=== PATIENT | female | born 1995 | race American Indian/Alaskan Native ===

== ENCOUNTER 2017-04-06 01:20 | Emergency (ER) | payer SELFPAY ==
[2017-04-06] MEDS ORDERED: Ketorolac 60 MG/2 ML SDV IM ONE (01:44)
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
[2017-04-06 03:01] VITALS: BP 103/57
--- NOTE | 2017-04-06 10:44 | CR ---
EXAM DATE: 04/06/17 PATIENT'S AGE: 21 Patient: MARINA RAMACHANDRAN Facility: [place], [place] Site . Site : 1995 Study: XRay Extremity Left [id number]/14/2017 2:18:48 AM Ordering Physician: Duke Garcia Final Report: INDICATION: hand pain, injury TECHNIQUE: Hand radiograph 2 views left COMPARISON: None FINDINGS: Bones: Alignment is normal. No acute fractures or aggressive bone lesions identified. Joint spaces: The carpal rows and visualized metacarpal and interphalangeal joints are normal in appearance. Soft tissues: Unremarkable. No radiopaque foreign bodies are seen. IMPRESSION: 1. No acute osseous injuries are noted. Dictated by: Herrera May MD @ 04/06/2017 02:21:39 (Electronic Signature) Report Signed by Proxy. [facility] CENTERBrooklynn
--- NOTE | 2017-04-06 10:45 | CR ---
EXAM DATE: 04/06/17 PATIENT'S AGE: 21 Patient: MARINA RAMACHANDRAN Facility: [place], [place] Site . Site : 1995 Study: XRay Pelvis [id number]/14/2017 2:20:03 AM Ordering Physician: Duke Garcia Final Report: INDICATION: fall, tailbone pain TECHNIQUE: Pelvis radiograph 1 view COMPARISON: None FINDINGS: Bones: Alignment is normal. No acute fractures or aggressive bone lesions identified. Joint spaces: The hip joints are unremarkable in appearance. The SI joints are unremarkable. No radiographic evidence of hip effusions are seen. The pubic symphysis is normal in appearance. Soft tissues: The visualized bowel gas pattern is normal. No abnormal calcifications are noted in the pelvis. IMPRESSION: 1. No acute osseous injuries are noted. Dedicated sacral radiographs are recommended. Dictated by: Herrera May MD @ 04/06/2017 02:22:23 (Electronic Signature) Report Signed by Proxy. [facility]
== END 2017-04-06 02:45 | disposition home or self-care (01) ==
LOC: MW.ED 01:20
DX: S63.602A Unspecified sprain of left thumb, initial encounter (principal); S30.0XXA Contusion of lower back and pelvis, initial encounter; S60.222A Contusion of left hand, initial encounter; Z87.440 Personal history of urinary (tract) infections; Y04.0XXA Assault by unarmed brawl or fight, initial encounter
CPT/HCPCS: 72170; 73120; 96372; 99283; J1885

== ENCOUNTER 2017-07-18 01:09 | Emergency (ER) | payer OTHER ==
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
[2017-07-18 02:07] LABS: CHLORIDE,CL 108 mmol/L (98-110); SODIUM,NA 136 mmol/L (136-146)
[2017-07-18 04:22] VITALS: BP 126/62
--- NOTE | 2017-07-18 19:10 | US ---
EXAM DATE: 07/18/17 PATIENT'S AGE: 21 Patient: MARINA RAMACHANDRAN Facility: [place], [place] Site . Site : 1995 Study: US OB Pelvis [id number]/[id number]/2017 3:25:10 AM Ordering Physician: Stephanie Berumen Final Report: INDICATION: Vaginal Bleeding TECHNIQUE: Ultrasound OB pelvis transvaginal. Real time cardenas scale imaging of the pelvis was performed. COMPARISON: None FINDINGS: Sonographic imaging demonstrates a single intrauterine gestation. The embryo demonstrates a regular cardiac rate measuring 139 beats per minute. The embryo` s crown rump length measurement of 10 mm corresponds to a gestational age of 7 weeks, 1 day. There is a normal appearing yolk sac. There are no gross abnormalities noted within the embryo at this early state of development. The placenta has not yet developed. The gestational sac has a normal appearance and there is no evidence of a perigestational hemorrhage. The amount of fluid within the sac appears appropriate for gestational age. The cervix is closed. The myometrium appears normal. The right ovary has a simple cyst measuring 2.2 cm in diameter. Arterial blood flow seen in both ovaries. No significant ascites noted. IMPRESSION: 1. Single viable intrauterine with an estimated gestational age of 7 weeks, 1 day. Dictated by Herrera May MD @ 07/18/2017 3:44:35 AM Dictated by: Herrera May MD @ 07/18/2017 03:47:58 (Electronic Signature) Report Signed by Proxy. [facility]
== END 2017-07-18 04:13 | disposition home or self-care (01) ==
LOC: MW.ED 01:09
DX: O20.0 Threatened abortion (principal); Z3A.01 Less than 8 weeks gestation of pregnancy; Z87.440 Personal history of urinary (tract) infections
CPT/HCPCS: 36415; 76817; 76817-26; 80053; 81001; 84702; 85025; 86900; 86901; 87086; 99283; 99284-25

== ENCOUNTER 2017-08-07 17:03 | Emergency (ER) | payer OTHER ==
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
[2017-08-07 17:28] VITALS: BP 120/74
== END 2017-08-07 18:20 | disposition home or self-care (01) ==
LOC: MW.ED 17:03
DX: O9A.211 Injury, poisoning and certain other consequences of external causes complicating pregnancy, first trimester (principal); S00.431A Contusion of right ear, initial encounter; Y04.2XXA Assault by strike against or bumped into by another person, initial encounter; Z3A.10 10 weeks gestation of pregnancy
CPT/HCPCS: 99282; 99284

== ENCOUNTER 2017-09-14 00:25 | Emergency (ER) | payer OTHER ==
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
[2017-09-14 02:28] VITALS: BP 121/68
--- NOTE | 2017-09-14 11:30 | US ---
EXAM DATE: 09/14/17 PATIENT'S AGE: 21 Patient: MARINA RAMACHANDRAN Facility: [place], [place] Site . Site : 1995 Study: US OB Pelvis [id number]/14/2017 1:48:18 AM Ordering Physician: Doctor Jimeenz Final Report: INDICATION: Vaginal spotting and cramping after a fall TECHNIQUE: Ultrasound OB pelvis transabdominal. Real-time cardenas-scale imaging of the fetus was performed with anatomic survey limited to biometric measurements. COMPARISON: 07/18/2017 FINDINGS: Sonographic imaging demonstrates a single intrauterine gestation. An anterior myometrial contraction is noted. heart rate: 156 bpm Orientation: Breech Placenta: Anterior without evidence of placenta abruption on submitted images Amniotic fluid: Subjectively normal Cervix: Visualized The composite ultrasound gestational age is calculated at 15 weeks, 3 days with an estimated sonographic due date of 03/05/2018. The estimated weight is 117 grams which lies at the 4 %. The following biometric measurements were obtained: Biparietal diameter: 3.0 cm Head circumference: 11.1 cm Abdominal circumference: 8.9 cm Femur length: 1.8 cm IMPRESSION: 1. Single viable intrauterine with an estimated gestational age of 15 weeks, 3 days. The estimated weight is near the 4th percentile and followup imaging is recommended to document normal intrauterine growth. Dictated by Herrera May MD @ 09/14/2017 2:01:47 AM Dictated by: Herrera May MD @ 09/14/2017 02:01:52 (Electronic Signature) Report Signed by Proxy. CHAYA
== END 2017-09-14 02:15 | disposition home or self-care (01) ==
LOC: MW.ED 00:25
DX: O99.89 Other specified diseases and conditions complicating pregnancy, childbirth and the puerperium (principal); R10.30 Lower abdominal pain, unspecified; Z3A.16 16 weeks gestation of pregnancy; W19.XXXA Unspecified fall, initial encounter
CPT/HCPCS: 76815; 76815-26; 81001; 99284; 99284-25

== ENCOUNTER 2017-10-25 23:50 | Emergency (ER) | payer OTHER ==
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
[2017-10-26] MEDS ORDERED: Albuterol/Ipratropium 3.0-0.5 MG/3 ML Neb Soln NEB ONE (00:50)
[2017-10-26] MEDS ORDERED: methylPREDNISolone Sodium Succinate 125 MG/2 ML SDV IM ONE (00:50)
[2017-10-26 03:14] LABS: CHLORIDE,CL 108 mmol/L (98-110); SODIUM,NA 138 mmol/L (136-146)
[2017-10-26 03:38] VITALS: BP 126/63
== END 2017-10-26 03:35 | disposition home or self-care (01) ==
LOC: MW.ED 23:50
DX: J10.1 Influenza due to other identified influenza virus with other respiratory manifestations (principal)
CPT/HCPCS: 36415; 80053; 81001; 85025; 87804; 93005; 94640; 96372; 99284; J2930; 99283

== ENCOUNTER 2017-10-27 03:49 | Emergency (ER) | payer OTHER ==
[2017-10-27] MEDS ORDERED: Sodium Chloride 0.9% 1,000 ML IV ONE (04:06)
[2017-10-27] MEDS ORDERED: Ondansetron 4 MG/2 ML SDV IVPUSH ONE (04:06)
--- NOTE | 2017-10-27 04:13 | EDM.PDOC ---
ED HPI GENERAL MEDICAL PROBLEM - General Chief Complaint: General Stated Complaint: FLU Time Seen by Provider: 10/27/17 04:11 Source of Information: Reports: Patient - History of Present Illness INITIAL COMMENTS - FREE TEXT/NARRATIVE: HISTORY AND PHYSICAL: History of present illness: [Patient is a 21-year-old female at 22 weeks with IUP She was diagnosed with influenza yesterday she states she coughed today until she nearly passed out , she became lightheaded during coughing and now to the floor and then laid on her side. No fever at current subjectively she did vomit one time coughing until she vomited no chest pain shortness breath headache dizziness palpitation about a urine symptoms No low back pain vaginal discharge or leakage bleeding or spotting ] Review of systems: As per history of present illness and below otherwise all systems reviewed and negative. Past medical history: As per history of present illness and as reviewed below otherwise noncontributory. Surgical history: As per history of present illness and as reviewed below otherwise noncontributory. Social history: No reported history of drug or alcohol abuse. Family history: As per history of present illness and as reviewed below otherwise noncontributory. Physical exam: HEENT: Atraumatic, normocephalic, pupils reactive, negative for conjunctival pallor or scleral icterus, mucous membranes moist, throat clear, neck supple, nontender, trachea midline. Lungs: Clear to auscultation, breath sounds equal bilaterally, chest nontender. Heart: S1S2, regular, negative for clicks, rubs, or JVD. Abdomen: Soft, nondistended, nontender. Negative for masses or hepatosplenomegaly. Negative for costovertebral tenderness. Consistent with dates Pelvis: Stable nontender. Genitourinary: Deferred. Rectal: Deferred. Extremities: Atraumatic, negative for cords or calf pain. Neurovascular unremarkable. Neuro: Awake, alert, oriented. Cranial nerves II through XII unremarkable. Cerebellum unremarkable. Motor and sensory unremarkable throughout. Exam nonfocal. Diagnostics: [UA ] Therapeutics: [1 L normal saline bolus Zofran 8 mg IV ] Impression: [Influenza Near-syncope secondary cough Vomiting secondary to cough 22 weeks with IUP heart tones 166] Definitive disposition and diagnosis as appropriate pending reevaluation and review of above. right flank Pain Score (Numeric/FACES): 6 - Related Data Allergies Allergy/AdvReac Type Severity Reaction Status Date / Time No Known Allergies Allergy Verified 10/27/17 04:00 Home Meds: Home Meds Albuterol [Proventil HFA] 6.7 gm INH BID PRN 10/27/17 [History] Oseltamivir [Tamiflu] 0 mg PO DAILY 10/27/17 [History] Past Medical History - Past Health History Medical/Surgical History: Denies Medical/Surgical History HEENT History: Reports: None Cardiovascular History: Reports: None Respiratory History: Reports: None Gastrointestinal History: Reports: None Genitourinary History: Reports: UTI, Recurrent Other Genitourinary History: frequent "kidney infections" 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 Endocrine/Metabolic History: Reports: None Hematologic History: Reports: None Immunologic History: Reports: None Oncologic (Cancer) History: Reports: None Dermatologic History: Reports: None - Infectious Disease History Infectious Disease History: Reports: None - Past Surgical History Head Surgeries/Procedures: Reports: None Female Surgical History: Reports: Section Musculoskeletal Surgical History: Reports: Other (See Below) Other Musculoskeletal Surgeries/Procedures:: right wrist sx; right ankle sx Social & Family History - Family History Family Medical History: Noncontributory Oncologic: Reports: Other (See Below) Other Oncologic Family History: stomach - Tobacco Use Smoking Status *Q: Never Smoker Second Hand Smoke Exposure: No - Caffeine Use Caffeine Use: Reports: None - Alcohol Use Days Per Week of Alcohol Use: 0 - Recreational Drug Use Recreational Drug Use: No ED ROS GENERAL - Review of Systems Review Of Systems: ROS reveals no pertinent complaints other than HPI. ED EXAM, GENERAL - Physical Exam Exam: See Below Course - Vital Signs Last Recorded V/S: Last Vital Signs Temp 99.8 F 10/27/17 04:56 Pulse 107 H 10/27/17 04:56 Resp 16 10/27/17 04:56 BP 129/71 10/27/17 04:56 Pulse Ox 96 10/27/17 04:56 - Orders/Labs/Meds Orders: Active Orders 24 hr Category Date Time Status Sodium Chloride 0.9% [Normal Saline] 1,000 ml Med 10/27/17 04:06 Active IV STAT Medication Orders Sodium Chloride (Normal Saline) 1,000 mls @ 999 mls/hr IV STAT ONE Stop: 10/27/17 05:06 Last Admin: 10/27/17 04:13 Dose: 999 mls/hr Labs: Laboratory Tests 10/27/17 Range/Units 04:08 Urine Color YELLOW Urine Appearance SLT CLOUDY Urine pH 6.5 (5.0-8.0) Ur Specific [place] 1.025 (1.001-1.035) Urine Protein NEGATIVE (NEGATIVE) mg/dL Urine Glucose (UA) NEGATIVE (NEGATIVE) mg/dL Urine Ketones NEGATIVE (NEGATIVE) mg/dL Urine Occult Blood NEGATIVE (NEGATIVE) Urine Nitrite NEGATIVE (NEGATIVE) Urine Bilirubin NEGATIVE (NEGATIVE) Urine Urobilinogen 0.2 (<2.0) EU/dL Ur Leukocyte Esterase NEGATIVE (NEGATIVE) Urine RBC 0-2 (0-2/HPF) Urine WBC 2-4 (0-5/HPF) Ur Epithelial Cells MODERATE (NONE-FEW) Amorphous Sediment MODERATE (NEGATIVE) Urine Bacteria FEW (NEGATIVE) Meds: Medications Generic Name Dose Route Start Last Admin Trade Name Freq PRN Reason Stop Dose Admin Sodium Chloride 1,000 mls @ 999 mls/hr 10/27/17 04:06 10/27/17 04:13 Normal Saline IV 10/27/17 05:06 999 mls/hr STAT ONE Administration Discontinued Medications Generic Name Dose Route Start Last Admin Trade Name Freq PRN Reason Stop Dose Admin Ondansetron HCl 8 mg 10/27/17 04:06 10/27/17 04:13 Zofran IVPUSH 10/27/17 04:07 8 mg ONETIME ONE Administration Departure - Departure Time of Disposition: 05:00 Disposition: Home, Self-Care 01 Condition: Good Clinical Impression: Influenza - Discharge Information Referrals: PCP,None [Primary Care Provider] - Forms: ED Department Discharge, ED Summary Discharge Additional Instructions: The following information is given to patients seen in the emergency department who are being discharged to home. This information is to outline your options for follow-up care. We provide all patients seen in our emergency department with a follow-up referral. The need for follow-up, as well as the timing and circumstances, are variable depending upon the specifics of your emergency department visit. If you don't have a primary care physician on staff, we will provide you with a referral. We always advise you to contact your personal physician following an emergency department visit to inform them of the circumstance of the visit and for follow-up with them and/or the need for any referrals to a consulting specialist. The emergency department will also refer you to a specialist when appropriate. This referral assures that you have the opportunity for follow-up care with a specialist. All of these measure are taken in an effort to provide you with optimal care, which includes your follow-up. Under all circumstances we always encourage you to contact your private physician who remains a resource for coordinating your care. When calling for follow-up care, please make the office aware that this follow-up is from your recent emergency room visit. If for any reason you are refused follow-up, please contact the [facility] emergency department at and asked to speak to the emergency department charge nurse. - My Orders Last 24 Hours: My Active Orders 10/27/17 04:06 Sodium Chloride 0.9% [Normal Saline] 1,000 ml IV STAT - Assessment/Plan Last 24 Hours: My Active Orders 10/27/17 04:06 Sodium Chloride 0.9% [Normal Saline] 1,000 ml IV STAT
[2017-10-27 04:57] VITALS: BP 129/71
== END 2017-10-27 05:10 | disposition home or self-care (01) ==
LOC: MW.ED 03:49
DX: O99.512 Diseases of the respiratory system complicating pregnancy, second trimester (principal); J11.1 Influenza due to unidentified influenza virus with other respiratory manifestations; R55 Syncope and collapse; Z3A.22 22 weeks gestation of pregnancy; Z79.899 Other long term (current) drug therapy
CPT/HCPCS: 81001; 96361; 96374; 99283; J2405; J7040

== ENCOUNTER 2018-02-10 00:57 | Inpatient (IN) | payer OTHER ==
[2018-02-10] MEDS ORDERED: Tranexamic Acid 1,000 MG in Sodium Chloride 0.9% 100 ML IV PRN (03:51)
[2018-02-10] MEDS ORDERED: Carboprost Tromethamine 250 MCG/1 ML Amp IM PRN (03:51)
[2018-02-10] MEDS ORDERED: Butorphanol 1 MG/ML SDV IVPUSH PRN (03:51)
[2018-02-10] MEDS ORDERED: Nalbuphine 10 MG/1 ML Vial IVPUSH PRN (03:51)
[2018-02-10] MEDS ORDERED: Lidocaine 1% 50 ML MDV INJECT PRN (03:51)
[2018-02-10] MEDS ORDERED: Sodium Chloride 0.9% 10 ML Syringe FLUSH PRN ×2 (03:51→15:39)
[2018-02-10] MEDS ORDERED: Water For Irrigation,Sterile 1,000 ML Container IRR PRN (03:51)
[2018-02-10] MEDS ORDERED: Misoprostol 200 MCG Tab PO PRN (03:51)
[2018-02-10] MEDS ORDERED: Methylergonovine 0.2 MG/1 ML Amp IM PRN (03:51)
[2018-02-10] MEDS ORDERED: Sodium Chloride 0.9% 2.5 ML Syringe FLUSH PRN ×2 (03:51→15:39)
[2018-02-10] MEDS ORDERED: Oxytocin/0.9 % Sodium Chloride 30 UNIT/500 ML BAG IV SCH ×2 (04:00→15:45)
[2018-02-10] MEDS: Ondansetron 4 MG/2 ML SDV IVPUSH PRN ×2 (04:20→11:28)
[2018-02-10] MEDS: Lactated Ringers 1,000 ML IV SCH ×3 (05:56→19:37)
--- NOTE | 2018-02-10 08:13 | PCM.LDHP ---
L&D History of Present Illness - General Date of Service: 02/10/18 Admit Problem/Dx: Patient Status Order with Admit Dx/Problem 02/10/18 01:04 Patient Status [ADT] Routine 02/10/18 03:51 Patient Status [ADT] Routine Admission Diagnosis/Problem Admission Diagnosis/Problem 02/10/18 08:08 22yo , EDC 03/01/2018 37 2/7 weeks, A+, RI, GBS neg, comes in labor Source of Information: Patient History Limitations: Reports: No Limitations - History of Present Illness Improves with: Reports: None Worsens with: Reports: None Associated Symptoms: Reports: N - Related Data Allergies/Adverse Reactions: Allergies Allergy/AdvReac Type Severity Reaction Status Date / Time No Known Allergies Allergy Verified 12/08/17 20:49 Home Medications: Home Meds Albuterol [Proventil HFA] 6.7 gm INH BID PRN 10/27/17 [History] Multivitamin [Multivitamins] 1 cap PO DAILY 12/08/17 [History] Past Medical History - Past Health History Medical/Surgical History: Denies Medical/Surgical History HEENT History: Reports: Otitis Media Cardiovascular History: Reports: None Respiratory History: Reports: None Gastrointestinal History: Reports: None Genitourinary History: Reports: Pyelonephritis, STD, UTI, Recurrent Other Genitourinary History: frequent "kidney infections" 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 Endocrine/Metabolic History: Reports: None Hematologic History: Reports: Anemia Immunologic History: Reports: None Oncologic (Cancer) History: Reports: None Dermatologic History: Reports: None - Infectious Disease History Infectious Disease History: Reports: Chicken Pox - Past Surgical History Female Surgical History: Reports: Section Musculoskeletal Surgical History: Reports: ORIF, Other (See Below) Other Musculoskeletal Surgeries/Procedures:: right wrist sx; right ankle sx Social & Family History - Family History Family Medical History: Noncontributory Cardiac: Reports: Hypertension, [place], Pacemaker Respiratory: Reports: None GI: Reports: Chronic Constipation : Reports: Renal Calculus OBGYN: Reports: Musculoskeletal: Reports: None Neurological: Reports: None Psychiatric: Reports: Depression Endocrine/Metabolic: Reports: None Hematologic: Reports: None Immunologic: Reports: None Oncologic: Reports: Other (See Below) Other Oncologic Family History: stomach - Tobacco Use Smoking Status *Q: Never Smoker Second Hand Smoke Exposure: Yes - Caffeine Use Caffeine Use: Reports: None - Alcohol Use Days Per Week of Alcohol Use: 0 - Recreational Drug Use Recreational Drug Use: No H&P Review of Systems - Review of Systems: Review Of Systems: See Below General: Reports: No Symptoms HEENT: Reports: No Symptoms Pulmonary: Reports: No Symptoms Cardiovascular: Reports: No Symptoms Gastrointestinal: Reports: No Symptoms Genitourinary: Reports: No Symptoms Musculoskeletal: Reports: No Symptoms Skin: Reports: No Symptoms Psychiatric: Reports: No Symptoms Neurological: Reports: No Symptoms Hematologic/Lymphatic: Reports: No Symptoms Immunologic: Reports: No Symptoms L&D Exam - Exam Exam: See Below - Vital Signs Weight: 108.635 kg - OB Specific Contraction Intensity: Mild to Moderate Movement: Active Heart Tones: Present Heart Rate (FHR) Variability: Moderate (6-25 bmp) Presentation: Vertex - Ron Score Ron Score Cervix Position: Midposition Ron Score Consistency: Soft Ron Score Effacement: >80% Ron Score Dilation: 3-4 cm Ron Score Infant's Station: -2 Ron Score Total: 9 - Exam General: Alert, Oriented, Cooperative HEENT: Hearing Intact Lungs: Clear to Auscultation, Normal Respiratory Effort Cardiovascular: Regular Rate, Regular Rhythm, Normal S1, Normal S2 GI/Abdominal Exam: Soft, Non-Tender Rectal Exam: Deferred Genitourinary: Normal bimanual exam, Cervical dilitation Back Exam: Full Range of Motion Extremities: Normal Inspection, Normal Range of Motion, Non-Tender, No Pedal Edema, Normal Capillary Refill Skin: Warm, Dry, Intact Neurological: Reflexes Equal Bilateral, Normal Speech, Normal Tone Psychiatric: Alert, Normal Affect, Normal Mood - Patient Data Lab Results Last 24 hrs: Laboratory Results - last 24 hr 02/10/18 02/10/18 02/10/18 Range/Units 01:10 04:10 04:10 WBC 11.26 H (4.0-11.0) K/uL RBC 3.68 L (4.30-5.90) M/uL Hgb 9.8 L (12.0-16.0) g/dL Hct 31.3 L (36.0-46.0) % MCV 85.1 (80.0-98.0) fL MCH 26.6 L (27.0-32.0) pg MCHC 31.3 (31.0-37.0) g/dL RDW Std Deviation 47.9 (28.0-62.0) fl RDW Coeff of Marisol 15 (11.0-15.0) % Plt Count 293 (150-400) K/uL MPV 9.70 (7.40-12.00) fL Nucleated RBC % 0.0 /100WBC Nucleated RBCs # 0 K/uL Urine Color YELLOW Urine Appearance CLEAR Urine pH 6.5 (5.0-8.0) Ur Specific [place] <= 1.005 (1.001-1.035) Urine Protein NEGATIVE (NEGATIVE) mg/dL Urine Glucose (UA) NEGATIVE (NEGATIVE) mg/dL Urine Ketones NEGATIVE (NEGATIVE) mg/dL Urine Occult Blood TRACE-LYSED (NEGATIVE) Urine Nitrite NEGATIVE (NEGATIVE) Urine Bilirubin NEGATIVE (NEGATIVE) Urine Urobilinogen 0.2 (<2.0) EU/dL Ur Leukocyte Esterase SMALL (NEGATIVE) Blood Type A POSITIVE Antibody Screen NEGATIVE Result Diagrams: 02/10/18 04:10 - Problem List (1) Supervision of normal IUP (intrauterine ) in multigravida SNOMED Code(s): 237488227, 265908229, 177942031 ICD Code: Z34.80 - ENCOUNTER FOR SUPRVSN OF NORMAL , UNSP TRIMESTER Status: Acute Priority: High Current Visit: Yes Qualifiers: Trimester: third trimester Qualified Code(s): Z34.83 - Encounter for supervision of other normal , third trimester (2) (vaginal after ) SNOMED Code(s): 437021367 ICD Code: O34.219 - MATERNAL CARE FOR UNSP TYPE SCAR FROM PREVIOUS DEL Status: Acute Priority: High Current Visit: Yes Problem List Initiated/Reviewed/Updated: Yes Orders Last 24hrs: Active Orders 24 hr Category Date Time Status Patient Status [ADT] Routine ADT 02/10/18 01:04 Active Patient Status [ADT] Routine ADT 02/10/18 03:51 Active Heart Tones [RC] CONTINUOUS Care 02/10/18 03:51 Active Non Stress Test [RC] PER UNIT ROUTINE Care 02/10/18 01:04 Active Non Stress Test [RC] PER UNIT ROUTINE Care 02/10/18 03:51 Active May Shower [RC] ASDIRECTED Care 02/10/18 03:51 Active Notify Provider [RC] PRN Care 02/10/18 03:51 Active Up ad Tita [RC] ASDIRECTED Care 02/10/18 01:04 Active Up ad Tita [RC] ASDIRECTED Care 02/10/18 03:51 Active Vaginal Exam [RC] Click to Edit Care 02/10/18 01:04 Active Vaginal Exam [RC] PRN Care 02/10/18 03:51 Active Vital Signs [RC] PER UNIT ROUTINE Care 02/10/18 01:04 Active Vital Signs [RC] PER UNIT ROUTINE Care 02/10/18 03:51 Active Butorphanol [Stadol] Med 02/10/18 03:51 Active 1 mg IVPUSH Q1H PRN Carboprost Tromethamine [Hemabate DS] Med 02/10/18 03:51 Active 250 mcg IM ASDIRECTED PRN Lactated Ringers [Ringers, Lactated] 1,000 ml Med 02/10/18 04:00 Active IV ASDIRECTED Lidocaine 1% [Xylocaine 1%] Med 02/10/18 03:51 Active 50 ml INJECT .ONCE PRN Methylergonovine [Methergine] Med 02/10/18 03:51 Active 0.2 mg IM ASDIRECTED PRN Misoprostol [Cytotec] Med 02/10/18 03:51 Active 200 mcg PO .ONCE PRN Nalbuphine [Nubain] Med 02/10/18 03:51 Active 10 mg IVPUSH Q1H PRN Ondansetron [Zofran] Med 02/10/18 04:00 Active 4 mg IVPUSH Q4H PRN Oxytocin/0.9 % Sodium Chloride [Oxytocin 30 Unit/500 ML Med 02/10/18 04:00 Active -NS] 30 unit in 500 ml IV TITRATE Sodium Chloride 0.9% [Saline Flush] Med 02/10/18 03:51 Active 10 ml FLUSH ASDIRECTED PRN Sodium Chloride 0.9% [Saline Flush] Med 02/10/18 03:51 Active 2.5 ml FLUSH ASDIRECTED PRN Tranexamic Acid [Cyklokapron] 1,000 mg Med 02/10/18 03:51 Active Sodium Chloride 0.9% [Normal Saline] 100 ml IV ONETIME Water For Irrigation,Sterile [Sterile Water for Med 02/10/18 03:51 Active Irrigation] 1,000 ml IRR ASDIRECTED PRN Scalp Electrode [WOMSER] Per Unit Routine Oth 02/10/18 03:51 Ordered Peripheral IV Insertion Adult [OM.PC] Routine Oth 02/10/18 03:51 Ordered Resuscitation Status Routine Resus Stat 02/10/18 01:04 Ordered Medication Orders Butorphanol Tartrate (Stadol) 1 mg IVPUSH Q1H PRN PRN Reason: Pain Carboprost Tromethamine (Hemabate Ds) 250 mcg IM ASDIRECTED PRN PRN Reason: Post Hemorrhage Tranexamic Acid 1,000 mg/ (Sodium Chloride) 110 mls @ 660 mls/hr IV ONETIME PRN PRN Reason: Bleeding Lactated Ringer's (Ringers, Lactated) 1,000 mls @ 150 mls/hr IV ASDIRECTED JOHN Last Admin: 02/10/18 05:56 Dose: 999 mls/hr Oxytocin/Sodium Chloride (Oxytocin 30 Unit/500 Ml-Ns) 30 unit in 500 mls @ 999 mls/hr IV TITRATE JOHN Lidocaine HCl (Xylocaine 1%) 50 ml INJECT .ONCE PRN PRN Reason: Laceration repair Methylergonovine Maleate (Methergine) 0.2 mg IM ASDIRECTED PRN PRN Reason: Post Hemorrhage Misoprostol (Cytotec) 200 mcg PO .ONCE PRN PRN Reason: Post Hemorrhage Nalbuphine HCl (Nubain) 10 mg IVPUSH Q1H PRN PRN Reason: Pain (severe 7-10) Ondansetron HCl (Zofran) 4 mg IVPUSH Q4H PRN PRN Reason: Nausea Last Admin: 02/10/18 04:20 Dose: 4 mg Sodium Chloride (Saline Flush) 10 ml FLUSH ASDIRECTED PRN PRN Reason: Keep Vein Open Sodium Chloride (Saline Flush) 2.5 ml FLUSH ASDIRECTED PRN PRN Reason: Keep Vein Open Sterile Water (Sterile Water For Irrigation) 1,000 ml IRR ASDIRECTED PRN PRN Reason: delivery Assessment/Plan Comment:: Labor A: 22yo , EDC 03/01/2018 37 2/7 weeks, A+, RI, GBS neg, comes in labor. She has a history of a C/S 2014 due to breech, Proven pelvis to 7lbs. P: Admit, OR and Dr Martinez notified of arrival, desires natural, anticipate .
[2018-02-10] MEDS ORDERED: Octyl 2-Cyanoacrylate 1 Tube ONE (15:22)
--- NOTE | 2018-02-10 15:30 | PCM.PREANE ---
Preanesthetic Assessment - Anesthesia/Transfusion/Family Hx Anesthesia History: Prior Anesthesia Without Reaction Transfusion History: No Prior Transfusion(s) - Physical Assessment NPO Status Date: 02/10/18 Height: 1.71 m Weight: 108.635 kg ASA Class: 2 Airway Class: Mallampati = 3 - Lab Values: Laboratory Last Values WBC 11.26 K/uL (4.0-11.0) H 02/10/18 04:10 RBC 3.68 M/uL (4.30-5.90) L 02/10/18 04:10 Hgb 9.8 g/dL (12.0-16.0) L 02/10/18 04:10 Hct 31.3 % (36.0-46.0) L 02/10/18 04:10 MCV 85.1 fL (80.0-98.0) 02/10/18 04:10 MCH 26.6 pg (27.0-32.0) L 02/10/18 04:10 MCHC 31.3 g/dL (31.0-37.0) 02/10/18 04:10 RDW Std Deviation 47.9 fl (28.0-62.0) 02/10/18 04:10 RDW Coeff of Marisol 15 % (11.0-15.0) 02/10/18 04:10 Plt Count 293 K/uL (150-400) 02/10/18 04:10 MPV 9.70 fL (7.40-12.00) 02/10/18 04:10 Nucleated RBC % 0.0 /100WBC 02/10/18 04:10 Nucleated RBCs # 0 K/uL 02/10/18 04:10 Urine Color YELLOW 02/10/18 01:10 Urine Appearance CLEAR 02/10/18 01:10 Urine pH 6.5 (5.0-8.0) 02/10/18 01:10 Ur Specific [place] <= 1.005 (1.001-1.035) 02/10/18 01:10 Urine Protein NEGATIVE mg/dL (NEGATIVE) 02/10/18 01:10 Urine Glucose (UA) NEGATIVE mg/dL (NEGATIVE) 02/10/18 01:10 Urine Ketones NEGATIVE mg/dL (NEGATIVE) 02/10/18 01:10 Urine Occult Blood TRACE-LYSED (NEGATIVE) 02/10/18 01:10 Urine Nitrite NEGATIVE (NEGATIVE) 02/10/18 01:10 Urine Bilirubin NEGATIVE (NEGATIVE) 02/10/18 01:10 Urine Urobilinogen 0.2 EU/dL (<2.0) 02/10/18 01:10 Ur Leukocyte Esterase SMALL (NEGATIVE) 02/10/18 01:10 Blood Type A POSITIVE 02/10/18 04:10 Antibody Screen NEGATIVE 02/10/18 04:10 - Allergies Allergies/Adverse Reactions: Allergies Allergy/AdvReac Type Severity Reaction Status Date / Time No Known Allergies Allergy Verified 12/08/17 20:49 - Acknowledgements Anesthesia Type Planned: Epidural Pt an Appropriate Candidate for the Planned Anesthesia: Yes Alternatives and Risks of Anesthesia Discussed w Pt/Guardian: Yes Pt/Guardian Understands and Agrees with Anesthesia Plan: Yes PreAnesthesia Questionnaire - Past Health History Medical/Surgical History: Denies Medical/Surgical History HEENT History: Reports: Otitis Media Cardiovascular History: Reports: None Respiratory History: Reports: None Gastrointestinal History: Reports: None Genitourinary History: Reports: Pyelonephritis, STD, UTI, Recurrent Other Genitourinary History: frequent "kidney infections" 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 Endocrine/Metabolic History: Reports: None Hematologic History: Reports: Anemia Immunologic History: Reports: None Oncologic (Cancer) History: Reports: None Dermatologic History: Reports: None - Infectious Disease History Infectious Disease History: Reports: Chicken Pox - Past Surgical History Female Surgical History: Reports: Section Musculoskeletal Surgical History: Reports: ORIF, Other (See Below) Other Musculoskeletal Surgeries/Procedures:: right wrist sx; right ankle sx - SUBSTANCE USE Smoking Status *Q: Never Smoker Second Hand Smoke Exposure: Yes Days Per Week of Alcohol Use: 0 Recreational Drug Use History: No - HOME MEDS Home Medications: Home Meds Albuterol [Proventil HFA] 6.7 gm INH BID PRN 10/27/17 [History] Multivitamin [Multivitamins] 1 cap PO DAILY 12/08/17 [History] - CURRENT (IN HOUSE) MEDS Current Meds: Current Medications Butorphanol Tartrate (Stadol) 1 mg IVPUSH Q1H PRN PRN Reason: Pain Carboprost Tromethamine (Hemabate Ds) 250 mcg IM ASDIRECTED PRN PRN Reason: Post Hemorrhage Tranexamic Acid 1,000 mg/ (Sodium Chloride) 110 mls @ 660 mls/hr IV ONETIME PRN PRN Reason: Bleeding Lactated Ringer's (Ringers, Lactated) 1,000 mls @ 150 mls/hr IV ASDIRECTED [facility] Last Admin: 02/10/18 14:31 Dose: 999 mls/hr Oxytocin/Sodium Chloride (Oxytocin 30 Unit/500 Ml-Ns) 30 unit in 500 mls @ 999 mls/hr IV TITRATE [facility] Lidocaine HCl (Xylocaine 1%) 50 ml INJECT .ONCE PRN PRN Reason: Laceration repair Methylergonovine Maleate (Methergine) 0.2 mg IM ASDIRECTED PRN PRN Reason: Post Hemorrhage Misoprostol (Cytotec) 200 mcg PO .ONCE PRN PRN Reason: Post Hemorrhage Nalbuphine HCl (Nubain) 10 mg IVPUSH Q1H PRN PRN Reason: Pain (severe 7-10) Last Admin: 02/10/18 12:13 Dose: 10 mg Ondansetron HCl (Zofran) 4 mg IVPUSH Q4H PRN PRN Reason: Nausea Last Admin: 02/10/18 11:28 Dose: 4 mg Sodium Chloride (Saline Flush) 10 ml FLUSH ASDIRECTED PRN PRN Reason: Keep Vein Open Sodium Chloride (Saline Flush) 2.5 ml FLUSH ASDIRECTED PRN PRN Reason: Keep Vein Open Sterile Water (Sterile Water For Irrigation) 1,000 ml IRR ASDIRECTED PRN PRN Reason: delivery Discontinued Medications Fentanyl/Bupivacaine HCl (Dtsrzzas-Mdxaj-Fo 2 Mcg/Ml-0.125%) Confirm Administered Dose 100 mls @ as directed EP .STK-MED ONE Stop: 02/10/18 14:55 Octyl Cyanoacrylate (Dermabond Advance) Confirm Administered Dose 1 applic .ROUTE .STK-MED ONE Stop: 02/10/18 15:23
--- NOTE | 2018-02-10 15:33 | PCM.PRNOTE ---
- Free Text/Narrative Note: Anes Note Patietn requests epidural for L&D. Risks and methods were discussed. Sitting position. Level L2-L3 Midline approach. Bet prep X 3. Sterile drape applied. Epidural space easily achieved using ALEXANDRA technique. Cath threaded 3 cm with ease. Sterile dressing applied. Test 3 cc 1.5 lido with epi neg. Load 10 cc pump solution is slow incremental doses. Pump started at 8 cc / hr with 6 cc q 20 min prn bolus. Patient reports adequate analgesia. 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
[2018-02-10] MEDS ORDERED: Ketorolac 30 MG/ML SDV ONE (15:34)
[2018-02-10] MEDS ORDERED: Ondansetron 4 MG/2 ML SDV ONE (15:34)
[2018-02-10] MEDS ORDERED: ceFAZolin 1 GM Vial ONE (15:34)
[2018-02-10] MEDS ORDERED: Oxytocin 10 Units/1 ML SDV ONE (15:34)
[2018-02-10] MEDS ORDERED: Morphine PF 1 MG/ML Amp ONE (15:35)
[2018-02-10] MEDS ORDERED: ceFAZolin 2 GM in Premix Bag 1 BAG IV ONE (15:39)
[2018-02-10] MEDS ORDERED: Lactated Ringers 1,000 ML IV SCH (15:45)
[2018-02-10] MEDS ORDERED: Citric Acid/Sodium Citrate Solution 30 ML Cup PO SCH (15:45)
[2018-02-10] MEDS ORDERED: fentaNYL 100 MCG/2 ML SDV ONE (15:57)
[2018-02-10] MEDS ORDERED: diphenhydrAMINE 50 MG/ML SDV IVPUSH PRN ×2 (16:32→16:46)
[2018-02-10] MEDS ORDERED: Naloxone 0.4 MG/ML Syringe IVPUSH PRN (16:32)
[2018-02-10] MEDS ORDERED: fentaNYL 100 MCG/2 ML SDV IVPUSH PRN (16:39)
[2018-02-10] MEDS ORDERED: Acetaminophen/oxyCODONE 325-10 MG Tab PO PRN (16:41)
[2018-02-10] MEDS ORDERED: Bisacodyl 10 MG Supp RECTAL PRN (16:46)
[2018-02-10] MEDS ORDERED: Lanolin 100% Cream 7 GM Tube TOP PRN (16:46)
[2018-02-10] MEDS ORDERED: Ondansetron 4 MG/2 ML SDV IV PRN (16:46)
[2018-02-10] MEDS ORDERED: Ibuprofen 800 MG Tab PO PRN (16:46)
--- NOTE | 2018-02-10 16:50 | PCM.OPNOTE ---
- General Post-Op/Procedure Note Date of Surgery/Procedure: 02/10/18 Operative Procedure(s): Repeat C/section. Pre Op Diagnosis: [id number] previous C/section. Post-Op Diagnosis: Same Anesthesia Technique: Epidural Primary Surgeon: Alexsander Martinez Chart Clerk: Tiffanie Chavez EBL in mLs: 650 Complications: None Condition: Good
--- NOTE | 2018-02-10 17:38 | PCM48HPAN ---
Post Anesthesia Note - EVALUATION WITHIN 48HRS OF ANESTHETIC Vital Signs in Normal Range: Yes Patient Participated in Evaluation: Yes Respiratory Function Stable: Yes Airway Patent: Yes Cardiovascular Function Stable: Yes Hydration Status Stable: Yes Pain Control Satisfactory: Yes Nausea and Vomiting Control Satisfactory: Yes Mental Status Recovered: Yes Resp Rate: 17
--- NOTE | 2018-02-10 17:38 | PCM.POSTAN ---
POST ANESTHESIA ASSESSMENT - MENTAL STATUS Mental Status: Alert - RESPIRATORY Respiratory Status: Respiratory Rate WNL - CARDIOVASCULAR CV Status: Pulse Rate WNL - GASTROINTESTINAL GI Status: No Symptoms - POST OP HYDRATION Hydration Status: Adequate & Stable
[2018-02-10] MEDS: Ketorolac 30 MG/ML SDV IVPUSH SCH ×2 (19:33→22:55)
[2018-02-10] MEDS: Docusate Sodium 100 MG Cap PO SCH (21:16)
[2018-02-11] MEDS: Nalbuphine 10 MG/1 ML Vial IVPUSH PRN ×2 (00:25→05:36)
[2018-02-11] MEDS: Lactated Ringers 1,000 ML IV SCH (03:43)
[2018-02-11] MEDS: Ketorolac 30 MG/ML SDV IVPUSH SCH ×3 (04:46→17:58)
--- NOTE | 2018-02-11 08:24 | PCM.PNPP ---
- General Info Date of Service: 02/11/18 Admission Dx/Problem (Free Text): Patient Status Order with Admit Dx/Problem 02/10/18 01:04 Patient Status [ADT] Routine 02/10/18 03:51 Patient Status [ADT] Routine Admission Diagnosis/Problem Admission Diagnosis/Problem 02/10/18 08:08 22yo , EDC 03/01/2018 37 2/7 weeks, A+, RI, GBS neg, comes in labor Functional Status: Reports: Pain Controlled, Tolerating Diet, Ambulating, Other (Moreno to BSB) - Review of Systems General: Reports: No Symptoms HEENT: Reports: No Symptoms Pulmonary: Reports: No Symptoms Cardiovascular: Reports: No Symptoms Gastrointestinal: Reports: No Symptoms Genitourinary: Reports: No Symptoms Musculoskeletal: Reports: No Symptoms Skin: Reports: No Symptoms Neurological: Reports: No Symptoms Psychiatric: Reports: No Symptoms - General Info Date of Service: 02/11/18 - Patient Data Vital Signs - Most Recent: Last Vital Signs Temp 36.3 C 02/11/18 08:00 Pulse 80 02/11/18 08:00 Resp 16 02/11/18 08:00 BP 107/60 02/11/18 08:00 Pulse Ox 96 02/11/18 08:00 Weight - Most Recent: 108.635 kg I&O - Last 24 Hours: Intake & Output 02/10/18 02/11/18 02/11/18 22:59 06:59 14:59 Intake Total 2700 240 Output Total 200 450 Balance 2500 -210 Lab Results - Last 24 Hours: Laboratory Results - last 24 hr 02/11/18 Range/Units 06:01 Hgb 7.9 L (12.0-16.0) g/dL Hct 25.4 L (36.0-46.0) % Med Orders - Current: Current Medications Bisacodyl (Dulcolax) 10 mg RECTAL .ONCE PRN PRN Reason: Constipation Citric Acid/Sodium Citrate (Bicitra Solution) 30 ml PO .ONCE JOHN Diphenhydramine HCl (Benadryl) 25 mg IVPUSH Q4H PRN PRN Reason: Itching Stop: 02/11/18 16:36 Diphenhydramine HCl (Benadryl) 25 mg IVPUSH Q6H PRN PRN Reason: Itching or Nausea Docusate Sodium (Colace) 100 mg PO BID [facility] Last Admin: 02/10/18 21:16 Dose: 100 mg Emollient Ointment (Lansinoh Hpa) 0 gm TOP ASDIRECTED PRN PRN Reason: Sore Nipples Fentanyl (Sublimaze) 50 - 100 mcg IVPUSH Q1H PRN PRN Reason: Pain (severe 7-10) Lactated Ringer's (Ringers, Lactated) 1,000 mls @ 500 mls/hr IV .BOLUS [facility] Oxytocin/Sodium Chloride (Oxytocin 30 Unit/500 Ml-Ns) 30 unit in 500 mls @ 250 mls/hr IV TITRATE [facility] Lactated Ringer's (Ringers, Lactated) 1,000 mls @ 125 mls/hr IV ASDIRECTED [facility] Last Admin: 02/11/18 03:43 Dose: 125 mls/hr Ibuprofen (Motrin) 800 mg PO Q8H PRN PRN Reason: mild pain or fever Ketorolac Tromethamine (Toradol) 30 mg IVPUSH Q6H [facility] Stop: 02/11/18 17:01 Last Admin: 02/11/18 04:46 Dose: 30 mg Nalbuphine HCl (Nubain) 5 mg IVPUSH Q3H PRN PRN Reason: Pruritis Stop: 02/11/18 16:36 Last Admin: 02/11/18 05:36 Dose: 5 mg Naloxone HCl (Narcan) 0.1 mg IVPUSH ONETIME PRN PRN Reason: Shortness of Breath Stop: 02/11/18 16:37 Ondansetron HCl (Zofran) 4 mg IV Q4H PRN PRN Reason: Nausea/Vomiting Oxycodone/Acetaminophen (Percocet 325-10 Mg) 1 tab PO Q4H PRN PRN Reason: Breakthrough Pain Oxycodone/Acetaminophen (Percocet 325-5 Mg) 1 tab PO Q4H PRN PRN Reason: Pain (moderate 4-6) Oxycodone/Acetaminophen (Percocet 325-5 Mg) 2 tab PO Q4H PRN PRN Reason: Pain (moderate 4-6) Sodium Chloride (Saline Flush) 10 ml FLUSH ASDIRECTED PRN PRN Reason: Keep Vein Open Sodium Chloride (Saline Flush) 2.5 ml FLUSH ASDIRECTED PRN PRN Reason: Keep Vein Open Discontinued Medications Butorphanol Tartrate (Stadol) 1 mg IVPUSH Q1H PRN PRN Reason: Pain Carboprost Tromethamine (Hemabate Ds) 250 mcg IM ASDIRECTED PRN PRN Reason: Post Hemorrhage Cefazolin Sodium (Ancef) Confirm Administered Dose 2 gm .ROUTE .STK-MED ONE Stop: 02/10/18 15:35 Fentanyl (Sublimaze) Confirm Administered Dose 100 mcg .ROUTE .STK-MED ONE Stop: 02/10/18 15:58 Last Admin: 02/10/18 19:33 Dose: Not Given Tranexamic Acid 1,000 mg/ (Sodium Chloride) 110 mls @ 660 mls/hr IV ONETIME PRN PRN Reason: Bleeding Lactated Ringer's (Ringers, Lactated) 1,000 mls @ 150 mls/hr IV ASDIRECTED [facility] Last Admin: 02/10/18 14:31 Dose: 999 mls/hr Oxytocin/Sodium Chloride (Oxytocin 30 Unit/500 Ml-Ns) 30 unit in 500 mls @ 999 mls/hr IV TITRATE [facility] Fentanyl/Bupivacaine HCl (Vzagmpex-Mefma-Gg 2 Mcg/Ml-0.125%) Confirm Administered Dose 100 mls @ as directed EP .STK-MED ONE Stop: 02/10/18 14:55 Cefazolin Sodium/Dextrose 2 gm (/ Premix) 50 mls @ 100 mls/hr IV ONETIME ONE Stop: 02/10/18 16:08 Last Admin: 02/10/18 19:33 Dose: Not Given Ketorolac Tromethamine (Toradol) Confirm Administered Dose 30 mg .ROUTE .STK- MED ONE Stop: 02/10/18 15:35 Lidocaine HCl (Xylocaine 1%) 50 ml INJECT .ONCE PRN PRN Reason: Laceration repair Methylergonovine Maleate (Methergine) 0.2 mg IM ASDIRECTED PRN PRN Reason: Post Hemorrhage Misoprostol (Cytotec) 200 mcg PO .ONCE PRN PRN Reason: Post Hemorrhage Morphine Sulfate (Duramorph Pf) Confirm Administered Dose 1 mg .ROUTE .STK-MED ONE Stop: 02/10/18 15:36 Nalbuphine HCl (Nubain) 10 mg IVPUSH Q1H PRN PRN Reason: Pain (severe 7-10) Last Admin: 02/10/18 12:13 Dose: 10 mg Octyl Cyanoacrylate (Dermabond Advance) Confirm Administered Dose 1 applic .ROUTE .STK-MED ONE Stop: 02/10/18 15:23 Ondansetron HCl (Zofran) 4 mg IVPUSH Q4H PRN PRN Reason: Nausea Last Admin: 02/10/18 11:28 Dose: 4 mg Ondansetron HCl (Zofran) Confirm Administered Dose 4 mg .ROUTE .STK-MED ONE Stop: 02/10/18 15:35 Oxytocin (Pitocin) Confirm Administered Dose 20 unit .ROUTE .STK-MED ONE Stop: 02/10/18 15:35 Sodium Chloride (Saline Flush) 10 ml FLUSH ASDIRECTED PRN PRN Reason: Keep Vein Open Sodium Chloride (Saline Flush) 2.5 ml FLUSH ASDIRECTED PRN PRN Reason: Keep Vein Open Sterile Water (Sterile Water For Irrigation) 1,000 ml IRR ASDIRECTED PRN PRN Reason: delivery - Interaction Infant Disposition, : in Room with Family Infant Interaction: Holding Infant Feeding: Breastfed ; Nursed Well Support Person: Sister - Recovery Exam Fundal Tone: Firm Fundal Level: 1 Fingerbreadths Below Umbilicus Fundal Placement: Midline Lochia Amount: Scant Lochia Color: Rubra/Red Bladder Status: Indwelling Catheter in Place Urinary Elimination: Indwelling Catheter - Exam General: Alert, Oriented, Cooperative, No Acute Distress Lungs: Clear to Auscultation, Normal Respiratory Effort Cardiovascular: Regular Rate, Regular Rhythm, No Murmurs Extremities: Normal Inspection, Normal Range of Motion, Non-Tender, No Pedal Edema, Normal Capillary Refill Skin: Warm, Dry, Intact Wound/Incisions: Healing Well, Dressing Dry and Intact Neurological: No New Focal Deficit, Normal Speech, Normal Tone Psy/Mental Status: Alert, Normal Affect, Normal Mood - Problem List & Annotations (1) Supervision of normal IUP (intrauterine ) in multigravida SNOMED Code(s): 971421397, 007928131, 529701303 Code(s): Z34.80 - ENCOUNTER FOR SUPRVSN OF NORMAL , UNSP TRIMESTER Status: Acute Priority: High Current Visit: Yes Qualifiers: Trimester: third trimester Qualified Code(s): Z34.83 - Encounter for supervision of other normal , third trimester (2) (vaginal after ) SNOMED Code(s): 037097410 Code(s): O34.219 - MATERNAL CARE FOR UNSP TYPE SCAR FROM PREVIOUS DEL Status: Acute Priority: High Current Visit: Yes (3) delivery delivered SNOMED Code(s): 460338854 Code(s): O82 - ENCOUNTER FOR DELIVERY WITHOUT INDICATION Status: Acute Priority: High Current Visit: No - Problem List Review Problem List Initiated/Reviewed/Updated: Yes - My Orders Last 24 Hours: My Active Orders 02/10/18 15:39 Sodium Chloride 0.9% [Saline Flush] 10 ml FLUSH ASDIRECTED PRN Sodium Chloride 0.9% [Saline Flush] 2.5 ml FLUSH ASDIRECTED PRN Resuscitation Status Routine 02/10/18 15:40 Up ad Tita [RC] ASDIRECTED Vital Signs [RC] PER UNIT ROUTINE Peripheral IV Insertion Adult [OM.PC] Routine Schedule Procedure [COMM] Per Unit Routine 02/10/18 15:42 Notify Provider Vital Signs [RC] PRN 02/10/18 15:45 Citric Acid/Sodium Citrate [Bicitra Solution] 30 ml PO .ONCE Lactated Ringers [Ringers, Lactated] 1,000 ml IV .BOLUS Oxytocin/0.9 % Sodium Chloride [Oxytocin 30 Unit/500 ML-NS] 30 unit in 500 ml IV TITRATE - Plan Plan:: Labor A: 22yo , EDC 03/01/2018 37 2/7 weeks, A+, RI, GBS neg, comes in labor. She has a history of a C/S 2014 due to breech, Proven pelvis to 7lbs. P: Admit, OR and Dr Martinez notified of arrival, desires natural, anticipate . PP day 1 A: VSS, AF, lochia small, incision dressing dry and intact, out of bed x1, breast feeding well. Bonding well with infant P: continue pp plan of care
[2018-02-11] MEDS ORDERED: diphenhydrAMINE 25 MG Cap PO PRN (14:57)
[2018-02-11] MEDS: Acetaminophen/oxyCODONE 325-5 MG Tab PO PRN (15:40)
[2018-02-12] MEDS: Docusate Sodium 100 MG Cap PO SCH ×2 (00:12→10:26)
[2018-02-12] MEDS: Acetaminophen/oxyCODONE 325-5 MG Tab PO PRN ×3 (00:16→11:17)
[2018-02-12 07:33] VITALS: BP 117/62
--- NOTE | 2018-02-12 10:37 | PCM.DCSUM1 ---
Discharge Summary - Hospital Course Free Text/Narrative:: Discharge home with infant. Follow up 10 days for incision check and 6 weeks for post , come sooner if needed. - Discharge Data Discharge Date: 02/12/18 Discharge Disposition: Home, Self-Care 01 Condition: Good - Discharge Diagnosis/Problem(s) (1) Supervision of normal IUP (intrauterine ) in multigravida SNOMED Code(s): 120664869, 185140497, 458391364 ICD Code: Z34.80 - ENCOUNTER FOR SUPRVSN OF NORMAL , UNSP TRIMESTER Status: Acute Priority: High Current Visit: Yes Qualifiers: Trimester: third trimester Qualified Code(s): Z34.83 - Encounter for supervision of other normal , third trimester (2) (vaginal after ) SNOMED Code(s): 396700903 ICD Code: O34.219 - MATERNAL CARE FOR UNSP TYPE SCAR FROM PREVIOUS DEL Status: Acute Priority: High Current Visit: Yes (3) delivery delivered SNOMED Code(s): 836920137 ICD Code: O82 - ENCOUNTER FOR DELIVERY WITHOUT INDICATION Status: Acute Priority: High Current Visit: No - Patient Summary/Data Operative Procedure(s) Performed: Repeat C/section. - Patient Instructions Diet: Usual Diet as Tolerated Activity: As Tolerated, No Strenuous Activities, Rest and Relax Today Driving: Do Not Drive (when taking Percocet or overly tired) Showering/Bathing: May Shower Notify Provider of: Fever, Increased Pain, Swelling and Redness, Drainage, Nausea and/or Vomiting Other/Special Instructions: Discharge home with . Follow up 10 days for incision check and 6 weeks for post , come sooner if needed. - Discharge Plan Home Medications: Home Meds Albuterol [Proventil HFA] 6.7 gm INH BID PRN 10/27/17 [History] Multivitamin [Multivitamins] 1 cap PO DAILY 12/08/17 [History] Patient Handouts: Delivery, Care After Referrals: [facility] [Outside] Alexsander Martinez MD [Physician] - (2 week: 02/22/18 @ 1:30pm 6 week: 03/24 @ 10:45am) - General Info Date of Service: 02/12/18 Admission Dx/Problem (Free Text: Patient Status Order with Admit Dx/Problem 02/10/18 01:04 Patient Status [ADT] Routine 02/10/18 03:51 Patient Status [ADT] Routine Admission Diagnosis/Problem Admission Diagnosis/Problem 02/10/18 08:08 22yo , EDC 03/01/2018 37 2/7 weeks, A+, RI, GBS neg, comes in labor Functional Status: Reports: Pain Controlled, Tolerating Diet, Ambulating, Urinating - Review of Systems General: Reports: No Symptoms HEENT: Reports: No Symptoms Pulmonary: Reports: No Symptoms Cardiovascular: Reports: No Symptoms Gastrointestinal: Reports: No Symptoms Genitourinary: Reports: No Symptoms Musculoskeletal: Reports: No Symptoms Skin: Reports: No Symptoms Neurological: Reports: No Symptoms Psychiatric: Reports: No Symptoms - Patient Data Vitals - Most Recent: Last Vital Signs Temp 36.8 C 02/12/18 07:32 Pulse 84 02/12/18 07:32 Resp 16 02/12/18 07:32 BP 117/62 02/12/18 07:32 Pulse Ox 94 L 02/12/18 07:32 Weight - Most Recent: 108.635 kg I&O - Last 24 hours: Intake & Output 02/11/18 02/12/18 02/12/18 22:59 06:59 14:59 Output Total 1100 Balance -1100 Med Orders - Current: Current Medications Bisacodyl (Dulcolax) 10 mg RECTAL .ONCE PRN PRN Reason: Constipation Citric Acid/Sodium Citrate (Bicitra Solution) 30 ml PO .ONCE JOHN Diphenhydramine HCl (Benadryl) 25 mg IVPUSH Q6H PRN PRN Reason: Itching or Nausea Diphenhydramine HCl (Benadryl) 25 mg PO Q4H PRN PRN Reason: Itching Last Admin: 02/11/18 15:35 Dose: 25 mg Docusate Sodium (Colace) 100 mg PO BID [facility] Last Admin: 02/12/18 10:26 Dose: 100 mg Emollient Ointment (Lansinoh Hpa) 0 gm TOP ASDIRECTED PRN PRN Reason: Sore Nipples Fentanyl (Sublimaze) 50 - 100 mcg IVPUSH Q1H PRN PRN Reason: Pain (severe 7-10) Lactated Ringer's (Ringers, Lactated) 1,000 mls @ 500 mls/hr IV .BOLUS [facility] Oxytocin/Sodium Chloride (Oxytocin 30 Unit/500 Ml-Ns) 30 unit in 500 mls @ 250 mls/hr IV TITRATE [facility] Lactated Ringer's (Ringers, Lactated) 1,000 mls @ 125 mls/hr IV ASDIRECTED [facility] Last Admin: 02/11/18 03:43 Dose: 125 mls/hr Ibuprofen (Motrin) 800 mg PO Q8H PRN PRN Reason: mild pain or fever Ondansetron HCl (Zofran) 4 mg IV Q4H PRN PRN Reason: Nausea/Vomiting Oxycodone/Acetaminophen (Percocet 325-10 Mg) 1 tab PO Q4H PRN PRN Reason: Breakthrough Pain Oxycodone/Acetaminophen (Percocet 325-5 Mg) 1 tab PO Q4H PRN PRN Reason: Pain (moderate 4-6) Last Admin: 02/11/18 15:40 Dose: 1 tab Oxycodone/Acetaminophen (Percocet 325-5 Mg) 2 tab PO Q4H PRN PRN Reason: Pain (moderate 4-6) Last Admin: 02/12/18 04:42 Dose: 2 tab Sodium Chloride (Saline Flush) 10 ml FLUSH ASDIRECTED PRN PRN Reason: Keep Vein Open Sodium Chloride (Saline Flush) 2.5 ml FLUSH ASDIRECTED PRN PRN Reason: Keep Vein Open Discontinued Medications Butorphanol Tartrate (Stadol) 1 mg IVPUSH Q1H PRN PRN Reason: Pain Carboprost Tromethamine (Hemabate Ds) 250 mcg IM ASDIRECTED PRN PRN Reason: Post Hemorrhage Cefazolin Sodium (Ancef) Confirm Administered Dose 2 gm .ROUTE .STK-MED ONE Stop: 02/10/18 15:35 Diphenhydramine HCl (Benadryl) 25 mg IVPUSH Q4H PRN PRN Reason: Itching Stop: 02/11/18 16:36 Fentanyl (Sublimaze) Confirm Administered Dose 100 mcg .ROUTE .STK-MED ONE Stop: 02/10/18 15:58 Last Admin: 02/10/18 19:33 Dose: Not Given Tranexamic Acid 1,000 mg/ (Sodium Chloride) 110 mls @ 660 mls/hr IV ONETIME PRN PRN Reason: Bleeding Lactated Ringer's (Ringers, Lactated) 1,000 mls @ 150 mls/hr IV ASDIRECTED [facility] Last Admin: 02/10/18 14:31 Dose: 999 mls/hr Oxytocin/Sodium Chloride (Oxytocin 30 Unit/500 Ml-Ns) 30 unit in 500 mls @ 999 mls/hr IV TITRATE [facility] Fentanyl/Bupivacaine HCl (Rbbvovdm-Xccxw-Lf 2 Mcg/Ml-0.125%) Confirm Administered Dose 100 mls @ as directed EP .STK-MED ONE Stop: 02/10/18 14:55 Cefazolin Sodium/Dextrose 2 gm (/ Premix) 50 mls @ 100 mls/hr IV ONETIME ONE Stop: 02/10/18 16:08 Last Admin: 02/10/18 19:33 Dose: Not Given Ketorolac Tromethamine (Toradol) Confirm Administered Dose 30 mg .ROUTE .STK- MED ONE Stop: 02/10/18 15:35 Ketorolac Tromethamine (Toradol) 30 mg IVPUSH Q6H [facility] Stop: 02/11/18 17:01 Last Admin: 02/11/18 17:58 Dose: 30 mg Lidocaine HCl (Xylocaine 1%) 50 ml INJECT .ONCE PRN PRN Reason: Laceration repair Methylergonovine Maleate (Methergine) 0.2 mg IM ASDIRECTED PRN PRN Reason: Post Hemorrhage Misoprostol (Cytotec) 200 mcg PO .ONCE PRN PRN Reason: Post Hemorrhage Morphine Sulfate (Duramorph Pf) Confirm Administered Dose 1 mg .ROUTE .STK-MED ONE Stop: 02/10/18 15:36 Nalbuphine HCl (Nubain) 10 mg IVPUSH Q1H PRN PRN Reason: Pain (severe 7-10) Last Admin: 02/10/18 12:13 Dose: 10 mg Nalbuphine HCl (Nubain) 5 mg IVPUSH Q3H PRN PRN Reason: Pruritis Stop: 02/11/18 16:36 Last Admin: 02/11/18 05:36 Dose: 5 mg Naloxone HCl (Narcan) 0.1 mg IVPUSH ONETIME PRN PRN Reason: Shortness of Breath Stop: 02/11/18 16:37 Octyl Cyanoacrylate (Dermabond Advance) Confirm Administered Dose 1 applic .ROUTE .STK-MED ONE Stop: 02/10/18 15:23 Ondansetron HCl (Zofran) 4 mg IVPUSH Q4H PRN PRN Reason: Nausea Last Admin: 02/10/18 11:28 Dose: 4 mg Ondansetron HCl (Zofran) Confirm Administered Dose 4 mg .ROUTE .STK-MED ONE Stop: 02/10/18 15:35 Oxytocin (Pitocin) Confirm Administered Dose 20 unit .ROUTE .STK-MED ONE Stop: 02/10/18 15:35 Sodium Chloride (Saline Flush) 10 ml FLUSH ASDIRECTED PRN PRN Reason: Keep Vein Open Sodium Chloride (Saline Flush) 2.5 ml FLUSH ASDIRECTED PRN PRN Reason: Keep Vein Open Sterile Water (Sterile Water For Irrigation) 1,000 ml IRR ASDIRECTED PRN PRN Reason: delivery - Exam General: Reports: Alert, Oriented, Cooperative, No Acute Distress Lungs: Reports: Clear to Auscultation, Normal Respiratory Effort Cardiovascular: Reports: Regular Rate, Regular Rhythm, No Murmurs GI/Abdominal Exam: Normal Bowel Sounds, Soft, Non-Tender, No Organomegaly, No Distention, No Abnormal Bruit, No Mass, Pelvis Stable (Female) Exam: Vaginal Bleeding Rectal (Female) Exam: Deferred Back Exam: Reports: Normal Inspection, Full Range of Motion Extremities: Normal Inspection, Normal Range of Motion, Non-Tender, Normal Capillary Refill, Pedal Edema (+1) Skin: Reports: Warm, Dry, Intact Wound/Incisions: Reports: Healing Well Neurological: Reports: No New Focal Deficit, Normal Gait, Normal Speech, Normal Tone Psy/Mental Status: Reports: Alert, Normal Affect, Normal Mood
--- NOTE | 2018-02-13 11:17 | OR ---
SURGEON: Alexsander Martinez MD DATE OF PROCEDURE: 02/10/2018 PREOPERATIVE DIAGNOSIS: Intrauterine 37+4, previous section x1, previous vaginal delivery x2. POSTOPERATIVE DIAGNOSIS: Intrauterine 37+4, previous section x1, previous vaginal delivery x2. OPERATION PERFORMED: Repeat low transverse section. VETERINARY POULTRY INSPECTOR: Tiffanie Chavez CNM. ANESTHESIA: Epidural by Carloz Case CRNA and Dr. Patricia. ESTIMATED BLOOD LOSS: 650 mL. COMPLICATIONS: None. EMS DRIVER: Dr. Martell Hines. FINDING: Male fetus. Apgars scores reported to be 8 and 9. Normal uterus, tubes, and ovaries. INDICATION FOR SURGERY: This patient is followed in our practice. She is 37+4. She had two previous vaginal births and one section for breech presentation. She originally consented for trial of labor. She is a candidate for trial of labor, and she met the criteria. She is admitted with active contractions and active labor, and at the time of admission, the patient was 3 to 4 cm. She had artificial rupture of the membranes, which was with clear fluid. The patient progressed to good 4 cm, 90%, vertex, and -1 station. The patient, after trial of 6 hours, did not progress adequately, and the patient decided to stop her trial of labor and to proceed with a repeat section. After counseling the patient and obtaining consent, we proceeded with a repeat low transverse section. PROCEDURE IN DETAIL: The patient was brought to the OR and properly identified. After adequate level of epidural anesthesia and the patient with a Moreno catheter in the bladder, the patient was prepped and draped in sterile fashion as usual. Time-out was taken, and then low transverse Pfannenstiel skin incision was done. Go's fascia and rectus fascia were opened in the direction of the incision. The two recti muscles were , and peritoneal cavity was entered. Bladder flap was raised in the usual manner, pushing the bladder away from the lower uterine segment. Low transverse uterine incision was done and extended manually with the hand and fetus was delivered. It was in vertex position and handed to Dr. Hines, the ovens supervisor, who is present at the time of the delivery. The fetus cried immediately. Apgars scores were reported to be 8 and 9. The weight is not available. The placenta delivered spontaneous, complete, and intact, and then repair of the lower uterine segment done with 2-0 Vicryl continuous in two layers and then reperitonealization done with 3-0 Vicryl continuous. The peritoneal cavity evacuated completely from all blood and blood clots and closed with 3-0 Vicryl continuous, the rectus fascia was closed with #1 PDS double strand continuous, Go's fascia with 3-0 Vicryl continuous, and the skin closed with 3-0 Vicryl on a Emerson needle in a subcuticular fashion with Dermabond. Instrument and sponge counts were correct. The patient tolerated the procedure well went to recovery room in stable general condition. MYA / MC /[id number]
== END 2018-02-12 12:05 | disposition home or self-care (01) | DRG 766 ==
LOC: MW.OBCHECK 00:57 → MW.OB 01:00 → MW.OBCHECK 03:51 → MW.OB 03:51 → OBSVTOIN 03:51 → MW.OB 16:04
PROVIDERS: ADMIT Obstetrics & Gynecology; ATTEND Obstetrics & Gynecology
PROC: 10D00Z1 Extraction of Products of Conception, Low, Open Approach (ICD-10-PCS; principal; 2018-02-10)
PROC: 10907ZC Drainage of Amniotic Fluid, Therapeutic from Products of Conception, Via Natural or Artificial Opening (ICD-10-PCS; 2018-02-10)
DX: O66.41 Failed attempted vaginal birth after previous cesarean delivery (principal); Z3A.37 37 weeks gestation of pregnancy; Z37.0 Single live birth
CPT/HCPCS: 36415; 51702; 59025; 81003; 85014; 85018; 85027; 86850; 86900; 86901; A9270-GY; J0690; J1885; J2274; J2300; J2405; J2590; J7120

== ENCOUNTER 2018-03-06 04:23 | Emergency (ER) | payer OTHER ==
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
[2018-03-06 04:34] VITALS: BP 133/87
[2018-03-06] MEDS ORDERED: Bacitracin Oint 1 GM U/D Packet TOP ONE (04:35)
== END 2018-03-06 04:51 ==
LOC: MW.ED 04:23
DX: Z02.89 Encounter for other administrative examinations (principal); Z48.817 Encounter for surgical aftercare following surgery on the skin and subcutaneous tissue
CPT/HCPCS: 99282

== ENCOUNTER 2018-12-08 21:53 | Emergency (ER) | payer OTHER ==
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
[2018-12-08 23:05] LABS: CHLORIDE,CL 103 mmol/L (98-107); SODIUM,NA 136 mmol/L (136-145)
--- NOTE | 2018-12-09 00:03 | US ---
HISTORY: Vaginal bleeding COMPARISON: None available of this gestation. TECHNIQUE: Ultrasound examination of the is performed with transabdominal technique. FINDINGS: A single intrauterine gestation is seen in cephalic presentation with regular cardiac activity at 152 beats per minute. The placenta is posterior and is free of the cervical os. The placental grade is 0 and the amniotic fluid volume is normal. BPD: 2.7 cm 14 weeks 6 days HC: 10.9 cm 15 weeks 2 days AC: 9.1 cm 15 weeks 2 days FL: 1.8 cm 15 weeks 3 days The estimated age by ultrasound is 15 weeks 2 days, with an estimated date of delivery of 05/30/2019. This correlates well with the clinical age of 14 weeks 0 days. The fetus is too young to permit and anatomic survey. The bladder, kidneys, and stomach are normal in appearance. There is a hypoechoic region anterior to the gestational sac consistent with a subchorionic hemorrhage. This extends from the superior placental margin to the lower uterine segment. There is no sign of color Doppler flow in this region. IMPRESSION: Single intrauterine gestation in cephalic presentation with regular cardiac activity. Estimated gestational age is 15 weeks 2 days. Moderate-sized subchorionic hemorrhage anterior to the gestational sac. Dictated by Antonio Dunne MD @ Dec 08 2018 11:57PM Signed by Dr. Antonio Dunne @ Dec 09 2018 12:02AM
[2018-12-09 00:38] VITALS: BP 127/75
== END 2018-12-09 00:45 | disposition home or self-care (01) ==
LOC: MW.ED 21:53
DX: O20.0 Threatened abortion (principal); Z3A.15 15 weeks gestation of pregnancy
CPT/HCPCS: 36415; 76801; 76801-26; 80053; 81001; 84702; 85025; 86900; 86901; 99283; 99284-25

== ENCOUNTER 2019-09-24 05:40 | Emergency (ER) | payer OTHER ==
--- NOTE | 2019-09-24 05:47 | EDM.PDOC ---
ED HPI GENERAL MEDICAL PROBLEM - General Chief Complaint: Abdominal Pain Stated Complaint: ABD PAIN Time Seen by Provider: 09/24/19 05:44 - History of Present Illness INITIAL COMMENTS - FREE TEXT/NARRATIVE: HISTORY AND PHYSICAL: History of present illness: The patient is a 29-year-old female who presents with a two-month history of epigastric pain radiating to her right upper quadrant that has been constant from the moment she wakes up to the moment she goes to sleep. She says it waxes and wanes in intensity but it is always there and there is no chest pain or shortness of breath. She has no flank pain or urinary symptoms and she has had no weight or pasty stools are no black and bloody stools. Today she did have an episode of diarrhea which was brown in color and she has had 10 episodes of vomiting with some blood streaks on the last few which isn't different for her symptoms. She said that she did eat pizza and applesauce last night. She's had no fevers or chills and she says that the pain does get triggered and is worse with fatty foods. She says she has been seeing her provider at [facility] but in order to get a referral for gallbladder evaluation or an endoscopy for possible ulcer disease she needs to go through a certain process with her insurance and she has not been able to do that yet. Her provider has recommended that she get this evaluation for this two-month history of pain. She describes the pain as stabbing and crampy and she also feels very bloated. Patient denies any recent alcohol use. The patient has a history of a in April of this year. She has no other abdominal surgeries and she is currently not breast-feeding Review of systems: As per history of present illness and below otherwise all systems reviewed and negative. Past medical history: As per history of present illness and as reviewed below otherwise noncontributory. Surgical history: As per history of present illness and as reviewed below otherwise noncontributory. Social history: No reported history of drug or alcohol abuse. Family history: As per history of present illness and as reviewed below otherwise noncontributory. Physical exam: General: Well-developed well-nourished female who is nontoxic and vital signs are noted by me. She ambulated into triage without distress or assistance. The patient is overweight and moves easily in the ED. HEENT: Atraumatic, normocephalic, pupils reactive, negative for conjunctival pallor or scleral icterus, mucous membranes moist, throat clear, neck supple, nontender, trachea midline. Lungs: Clear to auscultation, breath sounds equal bilaterally, chest nontender. Heart: S1S2, regular rate and rhythm no overt murmurs Abdomen: Soft, nondistended, epigastric and mid abdominal tenderness with some mild right upper quadrant tenderness but no left upper quadrant tenderness and no lower abdominal tenderness. No rebound or guarding and bowel sounds are hypoactive. There is no tympany on percussion. Negative for masses or hepatosplenomegaly. Negative for costovertebral tenderness. Pelvis: Stable nontender. Genitourinary: Deferred. Rectal: Deferred. Extremities: Atraumatic, negative for cords or calf pain. Neurovascular unremarkable. Neuro: Awake, alert, oriented. Cranial nerves II through XII unremarkable. Cerebellum unremarkable. Motor and sensory unremarkable throughout. Exam nonfocal. Diagnostics: EKG CBC CMP amylase lipase UA UCG CT scan of the abdomen and pelvis Therapeutics: IV fluids IV O2 monitor Zofran Protonix morphine The patient is feeling much improved after medications and says she is not having any more nausea or vomiting and her pain has sided. She is aware of her lab testing results as well as CT scan findings and the need to follow-up. I Also discussed with her dietary changes and I will give her medications or home management until she can get into the clinic. Her name was placed on the x-ray follow-up for her surgery clinic Impression: Epigastric/right upper quadrant pain acute on chronic with vomiting Definitive disposition and diagnosis as appropriate pending reevaluation and review of above. epigastric Pain Score (Numeric/FACES): 5 - Related Data Allergies Allergy/AdvReac Type Severity Reaction Status Date / Time No Known Allergies Allergy Verified 09/24/19 05:48 Home Meds: Home Meds . 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 Endocrine/Metabolic History: Reports: Obesity/BMI 30+ Hematologic History: Reports: Anemia Immunologic History: Reports: None Oncologic (Cancer) History: Reports: None Dermatologic History: Reports: None - Infectious Disease History Infectious Disease History: Reports: Chicken Pox - Past Surgical History Head Surgeries/Procedures: Reports: None Female Surgical History: Reports: Section (x2) Musculoskeletal Surgical History: Reports: ORIF, Other (See Below) Other Musculoskeletal Surgeries/Procedures:: right wrist sx; right ankle sx Social & Family History - Family History Family Medical History: Noncontributory Cardiac: Reports: Hypertension, [place], Pacemaker Respiratory: Reports: None GI: Reports: Chronic Constipation, Other (See Below) Other GI Family History: pt states that her mother from stomach cancer 2 years ago : Reports: Renal Calculus OBGYN: Reports: Musculoskeletal: Reports: None Neurological: Reports: None Psychiatric: Reports: Depression Endocrine/Metabolic: Reports: None Hematologic: Reports: None Immunologic: Reports: None Oncologic: Reports: Other (See Below) Other Oncologic Family History: stomach - Caffeine Use Caffeine Use: Reports: None ED ROS GENERAL - Review of Systems Review Of Systems: Comprehensive ROS is negative, except as noted in HPI. ED EXAM, GENERAL - Physical Exam Exam: See Below (See dictation) Course - Vital Signs Last Recorded V/S: Last Vital Signs Temp 36.1 C 09/24/19 05:40 Pulse 88 09/24/19 05:40 Resp 18 09/24/19 05:40 BP 120/87 09/24/19 05:40 Pulse Ox 97 09/24/19 05:40 - Orders/Labs/Meds Labs: Laboratory Tests 09/24/19 09/24/19 09/24/19 Range/Units 05:55 05:55 06:03 WBC 9.14 (4.0-11.0) K/uL RBC 4.61 (4.30-5.90) M/uL Hgb 13.3 (12.0-16.0) g/dL Hct 41.7 (36.0-46.0) % MCV 90.5 (80.0-98.0) fL MCH 28.9 (27.0-32.0) pg MCHC 31.9 (31.0-37.0) g/dL RDW Std Deviation 47.2 (28.0-62.0) fl RDW Coeff of Marisol 14 (11.0-15.0) % Plt Count 339 (150-400) K/uL MPV 10.00 (7.40-12.00) fL Neut % (Auto) 62.3 (48.0-80.0) % Lymph % (Auto) 28.3 (16.0-40.0) % Canyon % (Auto) 6.7 (0.0-15.0) % Eos % (Auto) 2.3 (0.0-7.0) % Baso % (Auto) 0.4 (0.0-1.5) % Neut # (Auto) 5.7 (1.4-5.7) K/uL Lymph # (Auto) 2.6 H (0.6-2.4) K/uL Canyon # (Auto) 0.6 (0.0-0.8) K/uL Eos # (Auto) 0.2 (0.0-0.7) K/uL Baso # (Auto) 0.0 (0.0-0.1) K/uL Nucleated RBC % 0.0 /100WBC Nucleated RBCs # 0 K/uL Sodium (136-145) mmol/L Potassium (3.5-5.1) mmol/L Chloride (98-107) mmol/L Carbon Dioxide (21.0-32.0) mmol/L BUN (7.0-18.0) mg/dL Creatinine (0.6-1.0) mg/dL Est Cr Clr Drug Dosing mL/min Estimated GFR (MDRD) ml/min Glucose (74-106) mg/dL Calcium (8.5-10.1) mg/dL Total Bilirubin (0.2-1.0) mg/dL AST (15-37) IU/L ALT (14-63) IU/L Alkaline Phosphatase (46-116) U/L Total Protein (6.4-8.2) g/dL Albumin (3.4-5.0) g/dL Globulin (2.6-4.0) g/dL Albumin/Globulin Ratio (0.9-1.6) Amylase (25-115) U/L Lipase (73-393) U/L Urine Color YELLOW Urine Appearance CLEAR Urine pH 6.0 (5.0-8.0) Ur Specific Turner 1.025 (1.001-1.035) Urine Protein NEGATIVE (NEGATIVE) mg/dL Urine Glucose (UA) NEGATIVE (NEGATIVE) mg/dL Urine Ketones NEGATIVE (NEGATIVE) mg/dL Urine Occult Blood NEGATIVE (NEGATIVE) Urine Nitrite NEGATIVE (NEGATIVE) Urine Bilirubin NEGATIVE (NEGATIVE) Urine Urobilinogen 0.2 (<2.0) EU/dL Ur Leukocyte Esterase NEGATIVE (NEGATIVE) Urine HCG, Qual NEGATIVE (NEGATIVE) 09/24/19 Range/Units 06:03 WBC (4.0-11.0) K/uL RBC (4.30-5.90) M/uL Hgb (12.0-16.0) g/dL Hct (36.0-46.0) % MCV (80.0-98.0) fL MCH (27.0-32.0) pg MCHC (31.0-37.0) g/dL RDW Std Deviation (28.0-62.0) fl RDW Coeff of Marisol (11.0-15.0) % Plt Count (150-400) K/uL MPV (7.40-12.00) fL Neut % (Auto) (48.0-80.0) % Lymph % (Auto) (16.0-40.0) % Canyon % (Auto) (0.0-15.0) % Eos % (Auto) (0.0-7.0) % Baso % (Auto) (0.0-1.5) % Neut # (Auto) (1.4-5.7) K/uL Lymph # (Auto) (0.6-2.4) K/uL Canyon # (Auto) (0.0-0.8) K/uL Eos # (Auto) (0.0-0.7) K/uL Baso # (Auto) (0.0-0.1) K/uL Nucleated RBC % /100WBC Nucleated RBCs # K/uL Sodium 141 (136-145) mmol/L Potassium 3.6 (3.5-5.1) mmol/L Chloride 102 (98-107) mmol/L Carbon Dioxide 25.0 (21.0-32.0) mmol/L BUN 16 (7.0-18.0) mg/dL Creatinine 0.7 (0.6-1.0) mg/dL Est Cr Clr Drug Dosing 117.01 mL/min Estimated GFR (MDRD) > 60.0 ml/min Glucose 83 (74-106) mg/dL Calcium 8.8 (8.5-10.1) mg/dL Total Bilirubin 0.4 (0.2-1.0) mg/dL AST 26 (15-37) IU/L ALT 59 (14-63) IU/L Alkaline Phosphatase 67 (46-116) U/L Total Protein 8.0 (6.4-8.2) g/dL Albumin 4.0 (3.4-5.0) g/dL Globulin 4.0 (2.6-4.0) g/dL Albumin/Globulin Ratio 1.0 (0.9-1.6) Amylase 33 (25-115) U/L Lipase 100 (73-393) U/L Urine Color Urine Appearance Urine pH (5.0-8.0) Ur Specific Turner (1.001-1.035) Urine Protein (NEGATIVE) mg/dL Urine Glucose (UA) (NEGATIVE) mg/dL Urine Ketones (NEGATIVE) mg/dL Urine Occult Blood (NEGATIVE) Urine Nitrite (NEGATIVE) Urine Bilirubin (NEGATIVE) Urine Urobilinogen (<2.0) EU/dL Ur Leukocyte Esterase (NEGATIVE) Urine HCG, Qual (NEGATIVE) Meds: Medications Discontinued Medications Generic Name Dose Route Start Last Admin Trade Name Freq PRN Reason Stop Dose Admin Pantoprazole Sodium 80 mg/ 20 mls @ 420 mls/hr 09/24/19 05:54 09/24/19 06:19 Sodium Chloride IVPUSH 09/24/19 05:56 420 mls/hr ONETIME ONE Administration Sodium Chloride 1,000 mls @ 999 mls/hr 09/24/19 05:54 09/24/19 06:13 Normal Saline IV 09/24/19 06:54 999 mls/hr STAT ONE Administration Iopamidol 100 ml 09/24/19 06:54 09/24/19 07:16 Isovue-370 (76%) IVPUSH 09/24/19 06:55 100 ml ONETIME ONE Administration Morphine Sulfate 2 mg 09/24/19 05:55 09/24/19 06:17 Morphine IVPUSH 09/24/19 05:56 2 mg ONETIME ONE Administration Ondansetron HCl 4 mg 09/24/19 05:54 09/24/19 06:15 Zofran IVPUSH 09/24/19 05:55 4 mg ONETIME ONE Administration Sodium Chloride 10 ml 09/24/19 05:54 Saline Flush FLUSH ASDIRECTED PRN Keep Vein Open Sodium Chloride 2.5 ml 09/24/19 05:54 Saline Flush FLUSH ASDIRECTED PRN Keep Vein Open Departure - Departure Time of Disposition: 07:25 Disposition: Home, Self-Care 01 Condition: Good Clinical Impression: Abdominal pain Qualifiers: Abdominal location: epigastric Qualified Code(s): R10.13 - Epigastric pain Vomiting Qualifiers: Vomiting type: unspecified Vomiting Intractability: non-intractable Nausea presence: with nausea Qualified Code(s): R11.2 - Nausea with vomiting, unspecified - Discharge Information Instructions: Abdominal Pain, Adult, [id number], Vomiting, Adult Referrals: PCP,None [Primary Care Provider] - Forms: ED Department Discharge Additional Instructions: The following information is given to patients seen in the emergency department who are being discharged to home. This information is to outline your options for follow-up care. We provide all patients seen in our emergency department with a follow-up referral. The need for follow-up, as well as the timing and circumstances, are variable depending upon the specifics of your emergency department visit. If you don't have a primary care physician on staff, we will provide you with a referral. We always advise you to contact your personal physician following an emergency department visit to inform them of the circumstance of the visit and for follow-up with them and/or the need for any referrals to a consulting specialist. The emergency department will also refer you to a specialist when appropriate. This referral assures that you have the opportunity for followup care with a specialist. All of these measure are taken in an effort to provide you with optimal care, which includes your followup. Under all circumstances we always encourage you to contact your private physician who remains a resource for coordinating your care. When calling for followup care, please make the office aware that this follow-up is from your recent emergency room visit. If for any reason you are refused follow-up, please contact the [facility] emergency department at and ask to speak to the emergency department charge nurse. [facility] [address] [place] [id number] Please connect with our surgery department as they can further evaluate your symptoms with outpatient tests such as endoscopy, US, HIDA scan as indicated. Make sure to tell them that you're here in the ED today and need follow-up care. Please eat a low-fat diet avoiding cheese good fats and fried foods caffeine and alcohol. Use medications as prescribed for nausea and vomiting and take the antacids as prescribed. You have also been given 2 medications for management of discomfort and pain to use as needed. Return to ER as needed and as discussed.
[2019-09-24 05:48] VITALS: BP 120/87; PULSE 88
[2019-09-24] MEDS ORDERED: Sodium Chloride 0.9% 2.5 ML Syringe FLUSH PRN (05:54)
[2019-09-24] MEDS ORDERED: Ondansetron 4 MG/2 ML SDV IVPUSH ONE (05:54)
[2019-09-24] MEDS ORDERED: Sodium Chloride 0.9% 10 ML Syringe FLUSH PRN (05:54)
[2019-09-24] MEDS ORDERED: Sodium Chloride 0.9% 1,000 ML IV ONE (05:54)
[2019-09-24] MEDS ORDERED: Pantoprazole 80 MG in Sodium Chloride 0.9% 20 ML IVPUSH ONE (05:54)
[2019-09-24] MEDS ORDERED: Morphine 2 MG/ML Syringe IVPUSH ONE (05:55)
[2019-09-24 06:37] LABS: BLOOD UREA NITROGEN,BUN 16 mg/dL (7.0-18.0); CHLORIDE,CL 102 mmol/L (98-107); GLUCOSE RANDOM 83 mg/dL (74-106); LIPASE 100 U/L (73-393); POTASSIUM,K 3.6 mmol/L (3.5-5.1); SODIUM,NA 141 mmol/L (136-145)
[2019-09-24] MEDS ORDERED: Iopamidol 755 Mg/ML 100 ML Bottle IVPUSH ONE (06:54)
--- NOTE | 2019-09-24 07:34 | CT ---
INDICATION: Abdominal pain. TECHNIQUE: CT scan of the abdomen and pelvis with 100 cc of Isovue-370 given intravenously. COMPARISON: CT scan of the abdomen and pelvis dated 07 October 2018. FINDINGS: The lung bases are unremarkable. 2.4 cm area of mild homogeneous enhancement in the lateral aspect of segment 7 of the liver is unchanged. No other focal abnormalities identified in the visualized portions of the liver, spleen, pancreas, adrenal glands, and kidneys. No hydronephrosis. No obstructing uroliths. The GI tract is incompletely distended but shows no gross abnormalities. The stomach and GE junction are not well assessed. Normal appendix. No retroperitoneal, pelvic sidewall, or mesenteric adenopathy. Periumbilical hernia which contains fat. IMPRESSION: 1. No acute abnormalities of the abdomen or pelvis identified. 2. 2.4 cm there is mild homogeneous enhancement in the lateral aspect of segment 7 of the liver is unchanged and could represent a hemangioma. Recommend follow-up MRI in 1 year for further evaluation. Dictated by Donovan Perkins MD @ 09/24/2019 7:31:30 AM Dictated by: Donovan Perkins MD @ 09/24/2019 07:31:40 (Electronically Signed)
== END 2019-09-24 08:23 | disposition home or self-care (01) ==
LOC: MW.ED 05:40
DX: R10.13 Epigastric pain (principal); R10.11 Right upper quadrant pain; G89.29 Other chronic pain; E66.9 Obesity, unspecified; Z68.41 Body mass index [BMI] 40.0-44.9, adult
CPT/HCPCS: 36415; 74177; 80053; 81003; 81025; 82150; 83690; 85025; 93005; 96361; 96374; 96375; 99284; C9113; J2270; J2405; J7030; Q9967

== ENCOUNTER 2019-12-26 15:08 | Emergency (ER) | payer SELFPAY ==
[2019-12-26 16:04] LABS: BLOOD UREA NITROGEN,BUN 12 mg/dL (7.0-18.0); CARBON DIOXIDE,CO2 25.6 mmol/L (21.0-32.0); CHLORIDE,CL 103 mmol/L (98-107); GLUCOSE RANDOM 101 mg/dL (74-106); LIPASE 95 U/L (73-393); POTASSIUM,K 3.3 mmol/L (3.5-5.1); SODIUM,NA 138 mmol/L (136-145)
[2019-12-26] MEDS ORDERED: Acetaminophen 500 MG Tab PO ONE (18:31)
--- NOTE | 2019-12-26 19:04 | EDM.PDOC ---
ED HPI GENERAL MEDICAL PROBLEM - General Chief Complaint: Abdominal Pain Stated Complaint: UPPER STOMACH Time Seen by Provider: 12/26/19 15:16 - History of Present Illness INITIAL COMMENTS - FREE TEXT/NARRATIVE: HPI 24-year-old obese G6PD 5 presents at 49 days estimated gestation for evaluation of sharp episodic lower abdominal discomfort that is described as crampy and is been present since yesterday morning. Pain is worsened by taking PO. No vaginal discharge or discomfort, no dysuria, no urinary frequency. No history of twin /gestation, no history of STIs. No fevers or chills. Continues to pass stool baseline. M/S/F/SocHx notable for: please see HPI; remainder reviewed with patient and in chart. ROS: Negative constitutional, eye, cardiovascular, pulmonary, GI, , MSK, skin , neurologic, psychiatric, endocrine unless noted in the HPI. Exam HR 114, RR 16, BP 126/98, T 36.2C, SaO2 95% on room air. Gen: Pleasant, non-toxic appearing, resting comfortably. HEENT: NC, AT, PEERL, EOMI. Resp: Clear to auscultation bilaterally, normal work of breathing, no accessory muscle usage. Card: Regular rate and rhythm with no murmurs, rubs, or gallops, extremities warm and well perfused. GI: Non-tender to palpation throughout all quadrants, no focal tenderness at McBurney's point, negative Zamarripa's sign, non-distended, no rebound or guarding. : No suprapubic tenderness to palpation. MSK: No visible deformities, strength and tone without visually appreciable deficit. Skin: Normal color with no visible lesions. Neuro: alert and oriented 3, no facial asymmetry, vision and hearing WNL. Psych: Mood and affect appropriate. Focused Biliary Ultrasound Indication: Right upper quadrant pain. Views Obtained: Transverse and longitudinal biliary views. Findings: Negative sonographic Zamarripa sign. No stones or sludge appreciated. Perpendicular measurement of the anterior gallbladder wall at 2 mm. No pericholecystic fluid. Focused Ultrasound Indication: evaluation with abdominal pain. Exam type (limited): Transabdominal, initial Views obtained: Transabdominal sagittal and transabdominal transverse. Findings: no definitive intrauterine , no free fluid. Labs / Imaging: WBC 6.69, HB 13.3, sodium 138, potassium 3.3, AST 21, ALT 47, ALP 57, total bilirubin 0.8, lipase 95, hCG 769. UA - few bacteria, few epithelial cells, negative leukocyte esterase, negative nitrate. MDM Previous chart, nursing note, labs, imaging, and vitals reviewed. A: 24-year-old obese G6PD 5 presents at 49 days estimated gestation for evaluation of sharp episodic lower abdominal discomfort that is described as crampy and is been present since yesterday morning. DDx: constipation, enteritis, UTI, ureterolithiasis, pyelonephritis, ectopic , hemorrhagic ovarian cyst, ovarian torsion. Evaluation: at the time of patient care transfer to the overnight ED provider the cause of the patients intermittent abdominal discomfort is of unclear etiology. The patient is entirely well-appearing without discernible abnormalities. Bznyy-[id number] ultrasound without identifiable intrauterine , however no further abnormalities were noted. A transvaginal ultrasound is pending. The patients HCG may be falsely low due to an ectopic , alternatively the patient may have incorrect recollection of her last period (patient was extremely hesitant and was perseverating between a period in October or November), if this is the case then the patients hCG would be indeterminate. No features suggestive of an acute biliary pathology, the patients right lower quadrant exam is without tenderness palpation, nor is there periumbilical tenderness palpation, which in the absence of leukocytosis, fever, anorexia, or further suggestive symptoms effectively excludes acute appendicitis. UA without evidence of infection, no features suggestive of ureterolithiasis based on exam and urinalysis. Patient care transfer to the overnight physician pending completion of evaluation. 1 g acetaminophen given in the ED for treatment of pain. Impression: abdominal pain. epigastric Pain Score (Numeric/FACES): 4 - Related Data Allergies Allergy/AdvReac Type Severity Reaction Status Date / Time No Known Allergies Allergy Verified 12/26/19 15:19 Home Meds: Home Meds . [No Known Home Meds] 09/24/19 [History] Past Medical History - Past Health History Medical/Surgical History: Denies Medical/Surgical History HEENT History: Reports: Otitis Media Cardiovascular History: Reports: None Respiratory History: Reports: None Gastrointestinal History: Reports: None Genitourinary History: Reports: Pyelonephritis, STD, UTI, Recurrent Other Genitourinary History: frequent "kidney infections" VOCAL ARTIST History: Reports: Other VOCAL ARTIST History: Musculoskeletal History: Reports: Fracture Neurological History: Reports: Migraines Psychiatric History: Reports: ADD, Depression Other Psychiatric History: per pt, police were notified by her from incident today and pt is getting restraining order. Endocrine/Metabolic History: Reports: Obesity/BMI 30+ Hematologic History: Reports: Anemia Immunologic History: Reports: None Oncologic (Cancer) History: Reports: None Dermatologic History: Reports: None - Infectious Disease History Infectious Disease History: Reports: Influenza - Past Surgical History Head Surgeries/Procedures: Reports: None Female Surgical History: Reports: Section Musculoskeletal Surgical History: Reports: ORIF, Other (See Below) Other Musculoskeletal Surgeries/Procedures:: right wrist sx; right ankle sx Social & Family History - Family History Family Medical History: Noncontributory Cardiac: Reports: Hypertension, [place], Pacemaker Respiratory: Reports: None GI: Reports: Chronic Constipation, Other (See Below) Other GI Family History: pt states that her mother from stomach cancer 2 years ago : Reports: Renal Calculus OBGYN: Reports: Musculoskeletal: Reports: None Neurological: Reports: None Psychiatric: Reports: Depression Endocrine/Metabolic: Reports: None Hematologic: Reports: None Immunologic: Reports: None Oncologic: Reports: Other (See Below) Other Oncologic Family History: stomach - Tobacco Use Smoking Status *Q: Never Smoker - Caffeine Use Caffeine Use: Reports: None - Recreational Drug Use Recreational Drug Use: No ED ROS GENERAL - Review of Systems Review Of Systems: See Below ED EXAM, GENERAL - Physical Exam Exam: See Below Course - Vital Signs Last Recorded V/S: Last Vital Signs Temp 35.9 C L 12/26/19 15:16 Pulse 89 12/26/19 15:16 Resp 16 12/26/19 15:16 BP 132/72 12/26/19 15:16 Pulse Ox 99 12/26/19 15:16 - Orders/Labs/Meds Orders: Active Orders 24 hr Category Date Time Status Communication Order [RC] STAT Care 12/26/19 17:19 Active OB Transvaginal [US] Stat Exams 12/26/19 17:19 Taken Labs: Laboratory Tests 12/26/19 12/26/19 12/26/19 Range/Units 15:30 15:31 15:31 WBC 6.69 (4.0-11.0) K/uL RBC 4.57 (4.30-5.90) M/uL Hgb 13.3 (12.0-16.0) g/dL Hct 42.2 (36.0-46.0) % MCV 92.3 (80.0-98.0) fL MCH 29.1 (27.0-32.0) pg MCHC 31.5 (31.0-37.0) g/dL RDW Std Deviation 49.0 (28.0-62.0) fl RDW Coeff of Marisol 15 (11.0-15.0) % Plt Count 278 (150-400) K/uL MPV 10.10 (7.40-12.00) fL Neut % (Auto) 68.5 (48.0-80.0) % Lymph % (Auto) 21.1 (16.0-40.0) % [place] % (Auto) 9.7 (0.0-15.0) % Eos % (Auto) 0.6 (0.0-7.0) % Baso % (Auto) 0.1 (0.0-1.5) % Neut # (Auto) 4.6 (1.4-5.7) K/uL Lymph # (Auto) 1.4 (0.6-2.4) K/uL [place] # (Auto) 0.7 (0.0-0.8) K/uL Eos # (Auto) 0.0 (0.0-0.7) K/uL Baso # (Auto) 0.0 (0.0-0.1) K/uL Nucleated RBC % 0.0 /100WBC Nucleated RBCs # 0 K/uL Sodium 138 (136-145) mmol/L Potassium 3.3 L (3.5-5.1) mmol/L Chloride 103 (98-107) mmol/L Carbon Dioxide 25.6 (21.0-32.0) mmol/L BUN 12 (7.0-18.0) mg/dL Creatinine 0.7 (0.6-1.0) mg/dL Est Cr Clr Drug Dosing 116.01 mL/min Estimated GFR (MDRD) > 60.0 ml/min Glucose 101 (74-106) mg/dL Calcium 8.7 (8.5-10.1) mg/dL Total Bilirubin 0.8 (0.2-1.0) mg/dL AST 21 (15-37) IU/L ALT 47 (14-63) IU/L Alkaline Phosphatase 57 (46-116) U/L Total Protein 7.4 (6.4-8.2) g/dL Albumin 3.7 (3.4-5.0) g/dL Globulin 3.7 (2.6-4.0) g/dL Albumin/Globulin Ratio 1.0 (0.9-1.6) Lipase 95 (73-393) U/L HCG, Quant 769.0 mIU/mL Urine Color YELLOW Urine Appearance CLEAR Urine pH 6.0 (5.0-8.0) Ur Specific [place] >= 1.030 (1.001-1.035) Urine Protein TRACE H (NEGATIVE) mg/dL Urine Glucose (UA) NEGATIVE (NEGATIVE) mg/dL Urine Ketones NEGATIVE (NEGATIVE) mg/dL Urine Occult Blood NEGATIVE (NEGATIVE) Urine Nitrite NEGATIVE (NEGATIVE) Urine Bilirubin NEGATIVE (NEGATIVE) Urine Urobilinogen 2.0 H (<2.0) EU/dL Ur Leukocyte Esterase NEGATIVE (NEGATIVE) Urine RBC 0-5 (0-2/HPF) Urine WBC 0-3 (0-5/HPF) Ur Epithelial Cells FEW (NONE-FEW) Urine Bacteria FEW (NEGATIVE) Urine Mucus MODERATE (NONE-MOD) Meds: Medications Discontinued Medications Generic Name Dose Route Start Last Admin Trade Name Hayley PRN Reason Stop Dose Admin Acetaminophen 1,000 mg 12/26/19 18:31 12/26/19 18:43 Tylenol Extra Strength PO 12/26/19 18:32 1,000 mg ONETIME ONE Administration Departure - Departure Time of Disposition: 19:03 Disposition: Still A Patient 30 Clinical Impression: Abdominal pain - Discharge Information Referrals: Abigail Giraldo MD [Primary Care Provider] - Sepsis Event Note - Evaluation Sepsis Screening Result: No Definite Risk - Focused Exam Vital Signs: Vital Signs Temp Pulse Resp BP Pulse Ox 12/26/19 15:16 35.9 C L 89 16 132/72 99 Date Exam was Performed: 12/26/19 Time Exam was Performed: 19:03 - My Orders Last 24 Hours: My Active Orders 12/26/19 17:19 Communication Order [RC] STAT OB Transvaginal [US] Stat - Assessment/Plan Last 24 Hours: My Active Orders 03/04/20 17:19 Communication Order [RC] STAT OB Transvaginal [US] Stat
--- NOTE | 2019-12-26 19:43 | EDM.PDOC ---
ED HPI GENERAL MEDICAL PROBLEM - General Chief Complaint: Abdominal Pain Stated Complaint: UPPER STOMACH Time Seen by Provider: 12/26/19 15:16 - History of Present Illness INITIAL COMMENTS - FREE TEXT/NARRATIVE: HPI 24-year-old obese G6PD 5 presents at 49 days estimated gestation for evaluation of sharp episodic lower abdominal discomfort that is described as crampy and is been present since yesterday morning. Pain is worsened by taking PO. No vaginal discharge or discomfort, no dysuria, no urinary frequency. No history of twin /gestation, no history of STIs. No fevers or chills. Continues to pass stool baseline. M/S/F/SocHx notable for: please see HPI; remainder reviewed with patient and in chart. ROS: Negative constitutional, eye, cardiovascular, pulmonary, GI, , MSK, skin , neurologic, psychiatric, endocrine unless noted in the HPI. Exam HR 114, RR 16, BP 126/98, T 36.2C, SaO2 95% on room air. Gen: Pleasant, non-toxic appearing, resting comfortably. HEENT: NC, AT, PEERL, EOMI. Resp: Clear to auscultation bilaterally, normal work of breathing, no accessory muscle usage. Card: Regular rate and rhythm with no murmurs, rubs, or gallops, extremities warm and well perfused. GI: Non-tender to palpation throughout all quadrants, no focal tenderness at McBurney's point, negative Zamarripa's sign, non-distended, no rebound or guarding. : No suprapubic tenderness to palpation. MSK: No visible deformities, strength and tone without visually appreciable deficit. Skin: Normal color with no visible lesions. Neuro: alert and oriented 3, no facial asymmetry, vision and hearing WNL. Psych: Mood and affect appropriate. Focused Biliary Ultrasound Indication: Right upper quadrant pain. Views Obtained: Transverse and longitudinal biliary views. Findings: Negative sonographic Zamarripa sign. No stones or sludge appreciated. Perpendicular measurement of the anterior gallbladder wall at 2 mm. No pericholecystic fluid. Focused Ultrasound Indication: evaluation with abdominal pain. Exam type (limited): Transabdominal, initial Views obtained: Transabdominal sagittal and transabdominal transverse. Findings: no definitive intrauterine , no free fluid. Labs / Imaging: WBC 6.69, HB 13.3, sodium 138, potassium 3.3, AST 21, ALT 47, ALP 57, total bilirubin 0.8, lipase 95, hCG 769. UA - few bacteria, few epithelial cells, negative leukocyte esterase, negative nitrate. MDM Previous chart, nursing note, labs, imaging, and vitals reviewed. A: 24-year-old obese G6PD 5 presents at 49 days estimated gestation for evaluation of sharp episodic lower abdominal discomfort that is described as crampy and is been present since yesterday morning. DDx: constipation, enteritis, UTI, ureterolithiasis, pyelonephritis, ectopic , hemorrhagic ovarian cyst, ovarian torsion. Evaluation: at the time of patient care transfer to the overnight ED provider the cause of the patients intermittent abdominal discomfort is of unclear etiology. The patient is entirely well-appearing without discernible abnormalities. [id number] ultrasound without identifiable intrauterine , however no further abnormalities were noted. A transvaginal ultrasound is pending. The patients HCG may be falsely low due to an ectopic , alternatively the patient may have incorrect recollection of her last period (patient was extremely hesitant and was perseverating between a period in October or November), if this is the case then the patients hCG would be indeterminate. No features suggestive of an acute biliary pathology, the patients right lower quadrant exam is without tenderness palpation, nor is there periumbilical tenderness palpation, which in the absence of leukocytosis, fever, anorexia, or further suggestive symptoms effectively excludes acute appendicitis. UA without evidence of infection, no features suggestive of ureterolithiasis based on exam and urinalysis. Patient care transfer to the overnight physician pending completion of evaluation. 1 g acetaminophen given in the ED for treatment of pain. Impression: abdominal pain. epigastric Pain Score (Numeric/FACES): 4 - Related Data Allergies Allergy/AdvReac Type Severity Reaction Status Date / Time No Known Allergies Allergy Verified 12/26/19 15:19 Home Meds: Home Meds . [No Known Home Meds] 09/24/19 [History] Past Medical History - Past Health History Medical/Surgical History: Denies Medical/Surgical History HEENT History: Reports: Otitis Media Cardiovascular History: Reports: None Respiratory History: Reports: None Gastrointestinal History: Reports: None Genitourinary History: Reports: Pyelonephritis, STD, UTI, Recurrent Other Genitourinary History: frequent "kidney infections" AEROLOGIST History: Reports: Other AEROLOGIST History: Musculoskeletal History: Reports: Fracture Neurological History: Reports: Migraines Psychiatric History: Reports: ADD, Depression Other Psychiatric History: per pt, police were notified by her from incident today and pt is getting restraining order. Endocrine/Metabolic History: Reports: Obesity/BMI 30+ Hematologic History: Reports: Anemia Immunologic History: Reports: None Oncologic (Cancer) History: Reports: None Dermatologic History: Reports: None - Infectious Disease History Infectious Disease History: Reports: Influenza - Past Surgical History Head Surgeries/Procedures: Reports: None Female Surgical History: Reports: Section Musculoskeletal Surgical History: Reports: ORIF, Other (See Below) Other Musculoskeletal Surgeries/Procedures:: right wrist sx; right ankle sx Social & Family History - Family History Family Medical History: Noncontributory Cardiac: Reports: Hypertension, [place], Pacemaker Respiratory: Reports: None GI: Reports: Chronic Constipation, Other (See Below) Other GI Family History: pt states that her mother from stomach cancer 2 years ago : Reports: Renal Calculus OBGYN: Reports: Musculoskeletal: Reports: None Neurological: Reports: None Psychiatric: Reports: Depression Endocrine/Metabolic: Reports: None Hematologic: Reports: None Immunologic: Reports: None Oncologic: Reports: Other (See Below) Other Oncologic Family History: stomach - Tobacco Use Smoking Status *Q: Never Smoker - Caffeine Use Caffeine Use: Reports: None - Recreational Drug Use Recreational Drug Use: No ED ROS GENERAL - Review of Systems Review Of Systems: See Below ED EXAM, GI/ABD - Physical Exam Exam: See Below Course - Vital Signs Text/Narrative:: The patient's care was transferred to ma pending an ultrasound to rule out malignant pathology, most specifically ectopic Ultrasound returned showing an intrauterine . No ectopic, free fluid or any malignant pathology. I spoke with the patient and she states that she does not think that was the issue because she states that she is having a spasmodic, intermittent epigastric pain that sometimes radiates to the right. The morning physician had checked her gallbladder and he thought it looked fine from an emergency perspective and I explained this to the patient in detail. I told her that the way she describes the pain as a spasmodic pain that comes and goes, it sounds like the gallbladder but at this time there are no signs of any emergencies (currently her abdomen remains soft without any reproducible tenderness ). She states that it is only been ongoing for about 24 hours but she has also seen her primary care physician and they have set her up for an upper GI and they have also put her on gallbladder diets in the past of the patient has definitely had previous episodes with abdominal pain and I suspect this is an acute on chronic problem. To summarize, I do not feel that there are any signs of an emergency at this time and the patient does need to follow-up with her store gift wrap associate, and she can also follow with her primary care physician and stick to a gallbladder diet at this time. Last Recorded V/S: Last Vital Signs Temp 35.9 C L 12/26/19 15:16 Pulse 71 12/26/19 20:04 Resp 18 12/26/19 20:04 BP 150/81 H 12/26/19 20:04 Pulse Ox 97 12/26/19 20:04 - Orders/Labs/Meds Orders: Active Orders 24 hr Category Date Time Status Communication Order [RC] STAT Care 12/26/19 17:19 Active Labs: Laboratory Tests 12/26/19 12/26/19 12/26/19 Range/Units 15:30 15:31 15:31 WBC 6.69 (4.0-11.0) K/uL RBC 4.57 (4.30-5.90) M/uL Hgb 13.3 (12.0-16.0) g/dL Hct 42.2 (36.0-46.0) % MCV 92.3 (80.0-98.0) fL MCH 29.1 (27.0-32.0) pg MCHC 31.5 (31.0-37.0) g/dL RDW Std Deviation 49.0 (28.0-62.0) fl RDW Coeff of Marisol 15 (11.0-15.0) % Plt Count 278 (150-400) K/uL MPV 10.10 (7.40-12.00) fL Neut % (Auto) 68.5 (48.0-80.0) % Lymph % (Auto) 21.1 (16.0-40.0) % [place] % (Auto) 9.7 (0.0-15.0) % Eos % (Auto) 0.6 (0.0-7.0) % Baso % (Auto) 0.1 (0.0-1.5) % Neut # (Auto) 4.6 (1.4-5.7) K/uL Lymph # (Auto) 1.4 (0.6-2.4) K/uL [place] # (Auto) 0.7 (0.0-0.8) K/uL Eos # (Auto) 0.0 (0.0-0.7) K/uL Baso # (Auto) 0.0 (0.0-0.1) K/uL Nucleated RBC % 0.0 /100WBC Nucleated RBCs # 0 K/uL Sodium 138 (136-145) mmol/L Potassium 3.3 L (3.5-5.1) mmol/L Chloride 103 (98-107) mmol/L Carbon Dioxide 25.6 (21.0-32.0) mmol/L BUN 12 (7.0-18.0) mg/dL Creatinine 0.7 (0.6-1.0) mg/dL Est Cr Clr Drug Dosing 116.01 mL/min Estimated GFR (MDRD) > 60.0 ml/min Glucose 101 (74-106) mg/dL Calcium 8.7 (8.5-10.1) mg/dL Total Bilirubin 0.8 (0.2-1.0) mg/dL AST 21 (15-37) IU/L ALT 47 (14-63) IU/L Alkaline Phosphatase 57 (46-116) U/L Total Protein 7.4 (6.4-8.2) g/dL Albumin 3.7 (3.4-5.0) g/dL Globulin 3.7 (2.6-4.0) g/dL Albumin/Globulin Ratio 1.0 (0.9-1.6) Lipase 95 (73-393) U/L HCG, Quant 769.0 mIU/mL Urine Color YELLOW Urine Appearance CLEAR Urine pH 6.0 (5.0-8.0) Ur Specific [place] >= 1.030 (1.001-1.035) Urine Protein TRACE H (NEGATIVE) mg/dL Urine Glucose (UA) NEGATIVE (NEGATIVE) mg/dL Urine Ketones NEGATIVE (NEGATIVE) mg/dL Urine Occult Blood NEGATIVE (NEGATIVE) Urine Nitrite NEGATIVE (NEGATIVE) Urine Bilirubin NEGATIVE (NEGATIVE) Urine Urobilinogen 2.0 H (<2.0) EU/dL Ur Leukocyte Esterase NEGATIVE (NEGATIVE) Urine RBC 0-5 (0-2/HPF) Urine WBC 0-3 (0-5/HPF) Ur Epithelial Cells FEW (NONE-FEW) Urine Bacteria FEW (NEGATIVE) Urine Mucus MODERATE (NONE-MOD) Meds: Medications Discontinued Medications Generic Name Dose Route Start Last Admin Trade Name Hayley PRN Reason Stop Dose Admin Acetaminophen 1,000 mg 12/26/19 18:31 12/26/19 18:43 Tylenol Extra Strength PO 12/26/19 18:32 1,000 mg ONETIME ONE Administration Departure - Departure Time of Disposition: 20:41 Disposition: Home, Self-Care 01 Condition: Good Clinical Impression: IUP (intrauterine ), incidental, Abdominal pain - Discharge Information Referrals: Abigail Giraldo MD [Primary Care Provider] - Forms: ED Department Discharge Additional Instructions: As we discussed, follow-up with your store gift wrap associate concerning your current . Also, stay with a gallbladder diet as the way you describe your pain it sounds like the gallbladder. Your primary care physician can direct your further care Sepsis Event Note - Evaluation Sepsis Screening Result: No Definite Risk - Focused Exam Vital Signs: Vital Signs Temp Pulse Resp BP Pulse Ox 12/26/19 20:04 71 18 150/81 H 97 12/26/19 15:16 35.9 C L 89 16 132/72 99 Date Exam was Performed: 12/26/19 Time Exam was Performed: 20:38
--- NOTE | 2019-12-26 20:01 | US ---
First trimester obstetrical ultrasound: Multiple real-time images were obtained transvaginally. Comparison: No previous study. Technologist's note: Ovaries not visualized due to patient body habitus and bowel gas pattern Findings: Small cystic area is seen within the endometrial cavity. There appears to be a gestational reaction around this small cystic area and findings most likely represent very small gestational sac too early to visualize pole or yolk sac. There is free fluid seen within the cul-de-sac. Adnexa show no discrete abnormality. Impression: 1. Small gestational sac. Recommend repeat study in 11-14 days to confirm normal developing . 2. Free fluid within the cul-de-sac possibly due to ruptured nonvisualized corpus luteum cyst. Diagnostic code #2 Study was dictated in [place] Standard Time
[2019-12-26 20:05] VITALS: BP 150/81; PULSE 71
== END 2019-12-26 20:49 | disposition home or self-care (01) ==
LOC: MW.ED 15:08
DX: O99.89 Other specified diseases and conditions complicating pregnancy, childbirth and the puerperium (principal); R10.30 Lower abdominal pain, unspecified; R10.13 Epigastric pain; O99.211 Obesity complicating pregnancy, first trimester
CPT/HCPCS: 36415; 76817; 80053; 81001; 83690; 84702; 85025; 99284; A9270

== ENCOUNTER 2020-07-10 01:56 | Emergency (ER) | payer OTHER ==
[2020-07-10] MEDS ORDERED: Sodium Chloride 0.9% 10 ML Syringe FLUSH PRN (02:36)
[2020-07-10] MEDS ORDERED: Clindamycin Phosphate in D5W 900 MG in Premix Bag 1 BAG IV ONE ×2 (02:36)
[2020-07-10] MEDS ORDERED: Sodium Chloride 0.9% 2.5 ML Syringe FLUSH PRN (02:36)
[2020-07-10] MEDS ORDERED: Sodium Chloride 0.9% 1,000 ML IV ONE (02:36)
[2020-07-10] MEDS ORDERED: Morphine 4 MG/ML Syringe IVPUSH ONE (02:38)
--- NOTE | 2020-07-10 03:04 | EDM.PDOC ---
ED HPI GENERAL MEDICAL PROBLEM - General Chief Complaint: Skin Complaint Stated Complaint: BIT ON BOTH LEGS BY DAD'S/SISTER'S DOG Time Seen by Provider: 07/10/20 02:06 Source of Information: Reports: Patient History Limitations: Reports: No Limitations - History of Present Illness INITIAL COMMENTS - FREE TEXT/NARRATIVE: 24F no relevant PMHx presents for cellulitis/abscess LLE. Patient was bit by a dog 2-weeks ago on b/l ankles. She was started on augmentin which she took and finished. Her RLE is healing nicely, but her LLE has continued pain/swelling/redness and drainage from one of the wound openings. It is getting worse/bigger. No fevers, N/V. left lower leg Pain Score (Numeric/FACES): 5 - Related Data Allergies Allergy/AdvReac Type Severity Reaction Status Date / Time No Known Allergies Allergy Verified 12/26/19 15:19 Home Meds: Home Meds Clindamycin HCl 450 mg PO TID 7 Days #63 capsule 07/10/20 [Rx] Sulfamethoxazole/Trimethoprim [Bactrim 400-80 MG] 1 each PO BID 7 Days #14 tablet 07/10/20 [Rx] oxyCODONE HCl/Acetaminophen [Percocet 5-325 mg Tablet] 1 - 2 each PO Q4H #18 tablet 07/10/20 [Rx] Past Medical History - Past Health History Medical/Surgical History: Denies Medical/Surgical History HEENT History: Reports: Otitis Media Cardiovascular History: Reports: None Respiratory History: Reports: None Gastrointestinal History: Reports: None Genitourinary History: Reports: Pyelonephritis, STD, UTI, Recurrent Other Genitourinary History: frequent "kidney infections" 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 Endocrine/Metabolic History: Reports: Obesity/BMI 30+ Hematologic History: Reports: Anemia Immunologic History: Reports: None Oncologic (Cancer) History: Reports: None Dermatologic History: Reports: None - Infectious Disease History Infectious Disease History: Reports: None - Past Surgical History Head Surgeries/Procedures: Reports: None Female Surgical History: Reports: Section Musculoskeletal Surgical History: Reports: ORIF, Other (See Below) Other Musculoskeletal Surgeries/Procedures:: right wrist sx; right ankle sx Social & Family History - Family History Family Medical History: Noncontributory Cardiac: Reports: Hypertension, [place], Pacemaker Respiratory: Reports: None GI: Reports: Chronic Constipation, Other (See Below) Other GI Family History: pt states that her mother from stomach cancer 2 years ago : Reports: Renal Calculus OBGYN: Reports: Musculoskeletal: Reports: None Neurological: Reports: None Psychiatric: Reports: Depression Endocrine/Metabolic: Reports: None Hematologic: Reports: None Immunologic: Reports: None Oncologic: Reports: Other (See Below) Other Oncologic Family History: stomach - Tobacco Use Smoking Status *Q: Never Smoker Second Hand Smoke Exposure: No - Caffeine Use Caffeine Use: Reports: Coffee, Soda - Recreational Drug Use Recreational Drug Use: No ED ROS GENERAL - Review of Systems Review Of Systems: Comprehensive ROS is negative, except as noted in HPI. ED EXAM, SKIN/RASH Exam: See Below Exam Limited By: No Limitations General Appearance: Alert, WD/WN, No Apparent Distress Ears: Normal External Exam Nose: Normal Inspection Throat/Mouth: Normal Inspection Head: Atraumatic, Normocephalic Neck: Normal Inspection Respiratory/Chest: No Respiratory Distress, No Accessory Muscle Use Cardiovascular: Normal Peripheral Pulses Extremities: Normal Inspection, Other (RLE w/ 2x small healing lacerations well appearing without signs of infection; LLE ankle w/ large area of erythema/warmth/swelling around 2x lacerations one of which is draining serosanguenous fluid ) Neurological: Alert Psychiatric: Normal Affect, Normal Mood Course - Vital Signs Last Recorded V/S: Last Vital Signs Temp 96.6 F L 07/10/20 02:22 Pulse 109 H 07/10/20 02:22 Resp 18 07/10/20 02:22 BP 121/67 07/10/20 02:22 Pulse Ox 92 L 07/10/20 02:22 - Orders/Labs/Meds Orders: Active Orders 24 hr Category Date Time Status CULTURE BLOOD [BC] Stat Lab 07/10/20 03:03 Received CULTURE BLOOD [BC] Stat Lab 07/10/20 03:07 Received Sodium Chloride 0.9% [Saline Flush] Med 07/10/20 02:36 Active 10 ml FLUSH ASDIRECTED PRN Sodium Chloride 0.9% [Saline Flush] Med 07/10/20 02:36 Active 2.5 ml FLUSH ASDIRECTED PRN Blood Culture x2 Reflex Set [OM.PC] Stat Ot 07/10/20 02:36 Ordered Saline Lock Insert [OM.PC] Stat Ot 07/10/20 02:36 Ordered Medication Orders Sodium Chloride (Saline Flush) 10 ml FLUSH ASDIRECTED PRN PRN Reason: Keep Vein Open Sodium Chloride (Saline Flush) 2.5 ml FLUSH ASDIRECTED PRN PRN Reason: Keep Vein Open Labs: Laboratory Tests 07/10/20 07/10/20 07/10/20 Range/Units 03:07 03:07 03:07 WBC 11.06 H (4.0-11.0) K/uL RBC 4.30 (4.30-5.90) M/uL Hgb 13.1 (12.0-16.0) g/dL Hct 40.6 (36.0-46.0) % MCV 94.4 (80.0-98.0) fL MCH 30.5 (27.0-32.0) pg MCHC 32.3 (31.0-37.0) g/dL RDW Std Deviation 47.0 (28.0-62.0) fl RDW Coeff of Marisol 14 (11.0-15.0) % Plt Count 278 (150-400) K/uL MPV 10.40 (7.40-12.00) fL Neut % (Auto) 68.9 (48.0-80.0) % Lymph % (Auto) 21.9 (16.0-40.0) % [place] % (Auto) 7.0 (0.0-15.0) % Eos % (Auto) 1.7 (0.0-7.0) % Baso % (Auto) 0.5 (0.0-1.5) % Neut # (Auto) 7.6 H (1.4-5.7) K/uL Lymph # (Auto) 2.4 (0.6-2.4) K/uL [place] # (Auto) 0.8 (0.0-0.8) K/uL Eos # (Auto) 0.2 (0.0-0.7) K/uL Baso # (Auto) 0.1 (0.0-0.1) K/uL Nucleated RBC % 0.0 /100WBC Nucleated RBCs # 0 K/uL Lactate 0.9 (0.20-2.00) mmol/L Sodium 139 (136-145) mmol/L Potassium 3.7 (3.5-5.1) mmol/L Chloride 104 (98-107) mmol/L Carbon Dioxide 23.5 (21.0-32.0) mmol/L BUN 21 H (7.0-18.0) mg/dL Creatinine 0.7 (0.6-1.0) mg/dL Est Cr Clr Drug Dosing 134.01 mL/min Estimated GFR (MDRD) > 60.0 ml/min Glucose 98 (74-106) mg/dL Calcium 8.3 L (8.5-10.1) mg/dL Total Bilirubin 0.2 (0.2-1.0) mg/dL AST 56 H (15-37) IU/L ALT 125 H (14-63) IU/L Alkaline Phosphatase 58 (46-116) U/L Total Protein 7.5 (6.4-8.2) g/dL Albumin 3.9 (3.4-5.0) g/dL Globulin 3.6 (2.6-4.0) g/dL Albumin/Globulin Ratio 1.1 (0.9-1.6) Meds: Medications Generic Name Dose Route Start Last Admin Trade Name Freq PRN Reason Stop Dose Admin Sodium Chloride 10 ml 07/10/20 02:36 Saline Flush FLUSH ASDIRECTED PRN Keep Vein Open Sodium Chloride 2.5 ml 07/10/20 02:36 Saline Flush FLUSH ASDIRECTED PRN Keep Vein Open Discontinued Medications Generic Name Dose Route Start Last Admin Trade Name Freq PRN Reason Stop Dose Admin Sodium Chloride 1,000 mls @ 999 mls/hr 07/10/20 02:36 07/10/20 03:23 Normal Saline IV 07/10/20 03:36 999 mls/hr .Bolus ONE Administration Clindamycin Phosphate 900 mg/ 50 mls @ 100 mls/hr 07/10/20 02:36 07/10/20 03:21 Premix IV 07/10/20 03:05 100 mls/hr ONETIME ONE Administration Iopamidol 100 ml 07/10/20 04:37 07/10/20 04:38 Isovue-370 (76%) IVPUSH 07/10/20 04:38 100 ml ONETIME STA Administration Morphine Sulfate 4 mg 07/10/20 02:38 07/10/20 03:22 Morphine IVPUSH 07/10/20 02:39 4 mg ONETIME ONE Administration - Re-Assessments/Exams Free Text/Narrative Re-Assessment/Exam: 07/10/20 03:03 Area is concerning for abscess. Will get basic labs, will give clindamycin IV, will get CT LLE to look for abscess/deep space infection. 07/10/20 05:30 CT does not show evidence of an abscess. Patient was offered transfer to [facility] for IV antibiotics for failed outpatient antibiotics. Patient unfortunately is unable to be transferred or stay in the hospital as she has several kids to take care of at home. I explained the risks of not treating this with IV antibiotics including worsening infection, amputation, sepsis, and , but patient would like to try different PO antibiotics. I will send her home with clindamycin and bactrim. She is very reasonable and understands return precautions and will come back to ED for worsening symptoms. The skin was marked with a skin marker. She also agrees to f/u with her physician this week as she may need outpatient infusion for IV antibiotics if she is unable to stay in the hospital, but this is unfortunately not something I can arrange from the ED. She understands Departure - Departure Time of Disposition: 05:24 Disposition: Home, Self-Care 01 Condition: Fair Clinical Impression: Cellulitis Qualifiers: Site of cellulitis: extremity Site of cellulitis of extremity: lower extremity Laterality: left Qualified Code(s): L03.116 - Cellulitis of left lower limb - Discharge Information Prescriptions: Sulfamethoxazole/Trimethoprim [Bactrim 400-80 MG] 1 each PO BID 7 Days #14 tablet Clindamycin HCl 450 mg PO TID 7 Days #63 capsule oxyCODONE HCl/Acetaminophen [Percocet 5-325 mg Tablet] 1 - 2 each PO Q4H #18 tablet Instructions: Cellulitis, Adult Referrals: Abigail Giraldo MD [Primary Care Provider] - Forms: ED Department Discharge Additional Instructions: The following information is given to patients seen in the emergency department who are being discharged to home. This information is to outline your options for follow-up care. We provide all patients seen in our emergency department with a follow-up referral. The need for follow-up, as well as the timing and circumstances, are variable depending upon the specifics of your emergency department visit. If you don't have a primary care physician on staff, we will provide you with a referral. We always advise you to contact your personal physician following an emergency department visit to inform them of the circumstance of the visit and for follow-up with them and/or the need for any referrals to a consulting specialist. The emergency department will also refer you to a specialist when appropriate. This referral assures that you have the opportunity for follow-up care with a specialist. All of these measure are taken in an effort to provide you with optimal care, which includes your follow-up. Under all circumstances we always encourage you to contact your private physician who remains a resource for coordinating your care. When calling for follow-up care, please make the office aware that this follow-up is from your recent emergency room visit. If for any reason you are refused follow-up, please contact the [facility] Emergency Department at and asked to speak to the emergency department charge nurse. Please follow up with your primary care physician. If you do not have a primary care physician, see below: [facility] [address] [place] [id number] My [facility] [address] [place] [id number] It was my recommendation to stay for IV antibiotics, but I understand that you are unable to, and we will try to manage this as an outpatient. However, if you're having worsening symptoms, spreading of redness after 48-hours on antibiotics, fever, or any new or concerning symptoms, you should come back for IV antibiotics. Sepsis Event Note (ED) - Evaluation Sepsis Screening Result: Possible Sepsis Risk - Focused Exam Vital Signs: Vital Signs Temp Pulse Resp BP Pulse Ox 07/10/20 02:22 96.6 F L 109 H 18 121/67 92 L - My Orders Last 24 Hours: My Active Orders 07/10/20 02:36 Sodium Chloride 0.9% [Saline Flush] 10 ml FLUSH ASDIRECTED PRN Sodium Chloride 0.9% [Saline Flush] 2.5 ml FLUSH ASDIRECTED PRN Blood Culture x2 Reflex Set [OM.PC] Stat Saline Lock Insert [OM.PC] Stat 07/10/20 03:03 CULTURE BLOOD [BC] Stat 07/10/20 03:07 CULTURE BLOOD [BC] Stat - Assessment/Plan Last 24 Hours: My Active Orders 07/10/20 02:36 Sodium Chloride 0.9% [Saline Flush] 10 ml FLUSH ASDIRECTED PRN Sodium Chloride 0.9% [Saline Flush] 2.5 ml FLUSH ASDIRECTED PRN Blood Culture x2 Reflex Set [OM.PC] Stat Saline Lock Insert [OM.PC] Stat 07/10/20 03:03 CULTURE BLOOD [BC] Stat 07/10/20 03:07 CULTURE BLOOD [BC] Stat
[2020-07-10 03:40] LABS: BLOOD UREA NITROGEN,BUN 21 mg/dL (7.0-18.0); CARBON DIOXIDE,CO2 23.5 mmol/L (21.0-32.0); CHLORIDE,CL 104 mmol/L (98-107); GLUCOSE RANDOM 98 mg/dL (74-106); POTASSIUM,K 3.7 mmol/L (3.5-5.1); SODIUM,NA 139 mmol/L (136-145)
[2020-07-10] MEDS ORDERED: Iopamidol 755 Mg/ML 100 ML Bottle IVPUSH STA (04:37)
--- NOTE | 2020-07-10 05:08 | CT ---
Indication: Infection Technique: A CT scan of the left leg with intravenous contrast. 100 mL of Isovue 370 administered. Comparison: None available Findings: There is a focal cutaneous defect/laceration in the posteromedial aspect of the distal leg. There is edema and induration in the underlying subcutaneous fat extending to the anteromedial aspect of the distal leg soft tissues. No loculated fluid collection is seen to suggest an abscess. No discrete abnormality is seen in the left leg musculature. No acute fracture or osseous erosive changes are seen. Impression: A focal cutaneous injury and underlying subcutaneus soft tissue edema in the distal leg. No evidence of abscess. Dictated by Ashvin Norris MD @ 07/10/2020 5:05:41 AM Please note that all CT scans at this facility use dose modulation, iterative reconstruction, and/or weight-based dosing when appropriate to reduce radiation dose to as low as reasonably achievable. Dictated by: Ashvin Norris MD @ 07/10/2020 05:06:07 (Electronically Signed)
[2020-07-10 05:48] VITALS: BP 120/77; PULSE 72
== END 2020-07-10 05:45 | disposition home or self-care (01) ==
LOC: MW.ED 01:56
DX: L03.116 Cellulitis of left lower limb (principal); E66.9 Obesity, unspecified; Z68.41 Body mass index [BMI] 40.0-44.9, adult
CPT/HCPCS: 36415; 73701; 80053; 83605; 85025; 87040; 96361; 96365; 96375; 99284; J2270; J3490; J7030; Q9967; 99283

== ENCOUNTER 2020-10-09 16:03 | Emergency (ER) | payer OTHER ==
--- NOTE | 2020-10-09 16:57 | EDM.PDOC ---
ED HPI GENERAL MEDICAL PROBLEM - General Chief Complaint: Abdominal Pain Stated Complaint: GALL BLADDER COMPLICATIONS Time Seen by Provider: 10/09/20 16:47 - History of Present Illness INITIAL COMMENTS - FREE TEXT/NARRATIVE: History of present illness: [] Patient is fairly consistent abdominal pain for a year. For the last 2 weeks has been severe. It is under the right rib cage and radiates down to the left lower quadrant. It is almost constant. She was seen on the in her hometown and had lab done and showed some mild elevation of liver functions. She has an ultrasound scheduled tomorrow to look at her gallbladder and common bile duct. The pain was intense today and it was so bad she could not wait. She not eating well. The patient has no other significant signs of systemic illness. Records from [facility] reviewed. She has mild elevation of liver functions. Her bili is normal. Her white count is normal. The tissue there called me and said she had talked to the surgeon in [place] and they said for to come to the emergency department because this would be the only way she can get an expeditious ultrasound. Review of systems: As per history of present illness and below otherwise all systems reviewed and negative. Past medical history: As per history of present illness and as reviewed below otherwise noncontributory. Surgical history: As per history of present illness and as reviewed below otherwise noncontributory. Social history: No reported history of drug or alcohol abuse. Family history: As per history of present illness and as reviewed below otherwise nonc ontributory. Physical exam: Constitutional - well developed, well-nourished and in no acute distress HEENT - normocephalic, no evidence of trauma - external nose and mouth normal - no mass in neck and no JVD - mucosae moist EYES - full EOM, PERRL, no icterus - no evidence of inflammation, injection, or drainage Respiratory - no respiratory distress, equal bilateral expansion, lungs clear to auscultation and no abnormal lung sounds Cardiovascular - Regular Rhythm with S1 and S2 appreciated and no murmur, gallop or rub. GI -right upper quadrant.-Abdomen soft without distension or organomegaly - normal bowel sounds - no guard or rebound Musculoskeletal no gross deformity of long bones or joints - no tenderness, swelling or edema Neurologic - Alert and oriented times four - CN II-XII grossly intact - motor sensory and coordination symmetrically normal Psychiatric - appropriate mood and affect with normal thought content Hematologic - No petechiae or purpura - mucosa appropriate color and sclera not pale - normal nail bed color and refill Integument - no rash or evidence of trauma - normal turgor Diagnostics: [] Therapeutics: [] Impression: [] Plan: [] Definitive disposition and diagnosis as appropriate pending reevaluation and review of above. Abdomen Pain Score (Numeric/FACES): 7 - Related Data Allergies Allergy/AdvReac Type Severity Reaction Status Date / Time No Known Allergies Allergy Verified 10/09/20 16:42 Home Meds: Home Meds levoFLOXacin [Levaquin] 750 mg PO DAILY #4 tab 10/09/20 [Rx] Past Medical History - Past Health History Medical/Surgical History: Denies Medical/Surgical History HEENT History: Reports: Otitis Media Cardiovascular History: Reports: None Respiratory History: Reports: None Gastrointestinal History: Reports: None Genitourinary History: Reports: Pyelonephritis, STD, UTI, Recurrent Other Genitourinary History: frequent "kidney infections" 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 Endocrine/Metabolic History: Reports: Obesity/BMI 30+ Hematologic History: Reports: Anemia Immunologic History: Reports: None Oncologic (Cancer) History: Reports: None Dermatologic History: Reports: None - Infectious Disease History Infectious Disease History: Reports: None - Past Surgical History Head Surgeries/Procedures: Reports: None Female Surgical History: Reports: Section Musculoskeletal Surgical History: Reports: ORIF, Other (See Below) Other Musculoskeletal Surgeries/Procedures:: right wrist sx; right ankle sx Social & Family History - Family History Family Medical History: No Pertinent Family History Cardiac: Reports: Hypertension, [place], Pacemaker Respiratory: Reports: None GI: Reports: Chronic Constipation, Other (See Below) Other GI Family History: pt states that her mother from stomach cancer 2 years ago : Reports: Renal Calculus OBGYN: Reports: Musculoskeletal: Reports: None Neurological: Reports: None Psychiatric: Reports: Depression Endocrine/Metabolic: Reports: None Hematologic: Reports: None Immunologic: Reports: None Oncologic: Reports: Other (See Below) Other Oncologic Family History: stomach - Tobacco Use Tobacco Use Status *Q: Never Tobacco User - Caffeine Use Caffeine Use: Reports: None - Recreational Drug Use Recreational Drug Use: No ED ROS GENERAL - Review of Systems Review Of Systems: Comprehensive ROS is negative, except as noted in HPI. ED EXAM, GENERAL - Physical Exam Exam: See Below Free Text/Narrative:: My physical exam is in the HPI Course - Vital Signs Text/Narrative:: 1728 hrs.-Leonard-gallbladder and common duct are normal. The visualized part of the pancreas is normal. Right kidney is normal. Liver is demonstrating a fatty liver. 1814 hrs. patient advised to take NSAIDs and not Tylenol or narcotics. She should follow-up with primary care. Discharged in satisfactory condition. Last Recorded V/S: Last Vital Signs Temp 36.5 C 10/09/20 16:43 Pulse 73 10/09/20 17:29 Resp 16 10/09/20 17:29 BP 127/77 10/09/20 17:29 Pulse Ox 99 10/09/20 17:29 - Orders/Labs/Meds Orders: Active Orders 24 hr Category Date Time Status Abdomen Ltd [US] Stat Exams 10/09/20 16:51 Taken Naproxen [Naprosyn] Med 10/09/20 18:14 Once 500 mg PO ONETIME ONE Medication Orders Naproxen (Naprosyn) 500 mg PO ONETIME ONE Stop: 10/09/20 18:15 Labs: Laboratory Tests 10/09/20 10/09/20 Range/Units 16:54 17:33 WBC 8.01 (4.0-11.0) K/uL RBC 4.39 (4.30-5.90) M/uL Hgb 13.2 (12.0-16.0) g/dL Hct 41.7 (36.0-46.0) % MCV 95.0 (80.0-98.0) fL MCH 30.1 (27.0-32.0) pg MCHC 31.7 (31.0-37.0) g/dL RDW Std Deviation 46.5 (28.0-62.0) fl RDW Coeff of Marisol 13 (11.0-15.0) % Plt Count 260 (150-400) K/uL MPV 10.40 (7.40-12.00) fL Neut % (Auto) 57.0 (48.0-80.0) % Lymph % (Auto) 32.2 (16.0-40.0) % [place] % (Auto) 8.0 (0.0-15.0) % Eos % (Auto) 2.4 (0.0-7.0) % Baso % (Auto) 0.4 (0.0-1.5) % Neut # (Auto) 4.6 (1.4-5.7) K/uL Lymph # (Auto) 2.6 H (0.6-2.4) K/uL [place] # (Auto) 0.6 (0.0-0.8) K/uL Eos # (Auto) 0.2 (0.0-0.7) K/uL Baso # (Auto) 0.0 (0.0-0.1) K/uL Nucleated RBC % 0.0 /100WBC Nucleated RBCs # 0 K/uL Sodium 141 (136-145) mmol/L Potassium 4.2 (3.5-5.1) mmol/L Chloride 105 (98-107) mmol/L Carbon Dioxide 26.8 (21.0-32.0) mmol/L BUN 14 (7.0-18.0) mg/dL Creatinine 0.6 (0.6-1.0) mg/dL Est Cr Clr Drug Dosing 135.35 mL/min Estimated GFR (MDRD) > 60.0 ml/min Glucose 91 (74-106) mg/dL Calcium 8.9 (8.5-10.1) mg/dL Total Bilirubin 0.3 (0.2-1.0) mg/dL AST 38 H (15-37) IU/L ALT 98 H (14-63) IU/L Alkaline Phosphatase 54 (46-116) U/L Total Protein 7.6 (6.4-8.2) g/dL Albumin 3.7 (3.4-5.0) g/dL Globulin 3.9 (2.6-4.0) g/dL Albumin/Globulin Ratio 0.9 (0.9-1.6) Lipase 87 (73-393) U/L Meds: Medications Generic Name Dose Route Start Last Admin Trade Name Freq PRN Reason Stop Dose Admin Naproxen 500 mg 10/09/20 18:14 Naprosyn PO 10/09/20 18:15 ONETIME ONE Departure - Departure Time of Disposition: 18:16 Disposition: Home, Self-Care 01 Condition: Good Clinical Impression: Fatty liver, Abdominal pain - Discharge Information Instructions: Abdominal Pain, Adult, [id number], Nonalcoholic Fatty Liver Disease Diet, Adult Referrals: Abigail Giraldo MD [Primary Care Provider] - Nelson Lennon MD [Physician] - Forms: ED Department Discharge Additional Instructions: Dr. Campbell wants you to take Levaquin daily. He wants you to call at 8 AM Tuesday and see him in his office Tuesday. He wants you to avoid all fatty and greasy foods. When should return if you have a high fever or confusion associated with severe abdominal pain. [facility] - General Surgery Professional Building [address] [place] [address], [address] [place] [address] [facility] - Primary Care [address] [place] [address] [place] [address] The following information is given to patients seen in the emergency department who are being discharged to home. This information is to outline your options for follow-up care. We provide all patients seen in our emergency department with a follow-up referral. The need for follow-up, as well as the timing and circumstances, are variable depending upon the specifics of your emergency department visit. If you don't have a primary care physician on staff, we will provide you with a referral. We always advise you to contact your personal physician following an emergency department visit to inform them of the circumstance of the visit and for follow-up with them and/or the need for any referrals to a consulting specialist. The emergency department will also refer you to a specialist when appropriate. This referral assures that you have the opportunity for follow-up care with a specialist. All of these measure are taken in an effort to provide you with optimal care, which includes your follow-up. Under all circumstances we always encourage you to contact your private physician who remains a resource for coordinating your care. When calling for follow-up care, please make the office aware that this follow-up is from your recent emergency room visit. If for any reason you are refused follow-up, please contact the [facility] Emergency Department at and asked to speak to the emergency department vitor loretta nurse. Sepsis Event Note (ED) - Evaluation Sepsis Screening Result: No Definite Risk - Focused Exam Vital Signs: Vital Signs Temp Pulse Resp BP Pulse Ox 10/09/20 17:29 73 16 127/77 99 10/09/20 16:43 36.5 C 76 16 132/79 96 - My Orders Last 24 Hours: My Active Orders 10/09/20 16:51 Abdomen Ltd [US] Stat 10/09/20 18:14 Naproxen [Naprosyn] 500 mg PO ONETIME ONE - Assessment/Plan Last 24 Hours: My Active Orders 10/09/20 16:51 Abdomen Ltd [US] Stat 10/09/20 18:14 Naproxen [Naprosyn] 500 mg PO ONETIME ONE
[2020-10-09 18:02] LABS: BLOOD UREA NITROGEN,BUN 14 mg/dL (7.0-18.0); CARBON DIOXIDE,CO2 26.8 mmol/L (21.0-32.0); CHLORIDE,CL 105 mmol/L (98-107); GLUCOSE RANDOM 91 mg/dL (74-106); LIPASE 87 U/L (73-393); POTASSIUM,K 4.2 mmol/L (3.5-5.1); SODIUM,NA 141 mmol/L (136-145)
[2020-10-09] MEDS ORDERED: Naproxen 500 MG Tab PO ONE (18:14)
[2020-10-09] MEDS ORDERED: Levofloxacin 500 MG Tab PO ONE (18:24)
--- NOTE | 2020-10-09 18:44 | US ---
INDICATION: Right upper quadrant abdomen pain TECHNIQUE: Ultrasound abdomen limited. Sonographic images of the right upper quadrant were obtained using cardenas-scale and color Doppler images. COMPARISON: None FINDINGS: Liver: Mildly enlarged and diffusely increased in echogenicity without focal lesion. Gallbladder: No stones or sludge. Normal wall thickness. No pericholecystic fluid. Common bile duct: 4 mm. Pancreas: Obscured by bowel gas without gross abnormality. Right kidney: Normal in size. Normal echotexture and cortex. No masses, stones, or hydronephrosis. Vasculature: Proximal abdominal aorta and IVC are normal. IMPRESSION: 1. No evidence of cholelithiasis or cholecystitis. 2. Mild hepatomegaly with moderate fatty infiltration of the liver. Dictated by Mickey Álvarez MD @ Oct 09 2020 6:38PM Signed by Dr. Mickey Álvarez @ Oct 09 2020 6:41PM
[2020-10-09 19:41] VITALS: BP 108/80; PULSE 73
== END 2020-10-09 18:57 | disposition home or self-care (01) ==
LOC: MW.ED 16:03
DX: K76.0 Fatty (change of) liver, not elsewhere classified (principal); E66.9 Obesity, unspecified; Z68.37 Body mass index [BMI] 37.0-37.9, adult
CPT/HCPCS: 36415; 76705; 80053; 83690; 85025; 99284; A9270; 99283

== ENCOUNTER 2020-10-29 07:03 | Day surgery (SDC) | payer SELFPAY ==
[~2020-10-29 07:03] MED LIST: Lactated Ringers 1,000 ML IV SCH
[2020-10-29] MEDS ORDERED: Midazolam 1 MG/ML 2 ML SDV ONE (07:15)
[2020-10-29] MEDS ORDERED: Propofol 200 MG/20 ML SDV ONE ×2 (07:15→08:48)
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
--- NOTE | 2020-10-29 09:17 | PCM.OPNOTE ---
- General Post-Op/Procedure Note Date of Surgery/Procedure: 10/29/20 Operative Procedure(s): egd w bx. colonoscopy w random bx Findings: see [id number] Pre Op Diagnosis: abd pain Post-Op Diagnosis: Same Anesthesia Technique: Moderate Sedation Primary Surgeon: Nelson Lennon Complications: None Condition: Good
[2020-10-29 10:04] VITALS: BP 116/72; PULSE 79
--- NOTE | 2020-10-29 10:19 | PCM48HPAN ---
Post Anesthesia Note - EVALUATION WITHIN 48HRS OF ANESTHETIC Vital Signs in Normal Range: Yes Patient Participated in Evaluation: Yes Respiratory Function Stable: Yes Airway Patent: Yes Cardiovascular Function Stable: Yes Hydration Status Stable: Yes Pain Control Satisfactory: Yes Nausea and Vomiting Control Satisfactory: Yes Mental Status Recovered: Yes Vital Signs: Last Vital Signs Temp 97.5 F 10/29/20 09:25 Pulse 79 10/29/20 09:25 Resp 15 10/29/20 09:25 BP 116/72 10/29/20 09:25 Pulse Ox 98 10/29/20 09:25
--- NOTE | 2020-10-29 10:19 | PCM.POSTAN ---
POST ANESTHESIA ASSESSMENT - MENTAL STATUS Mental Status: Alert, Oriented - VITAL SIGNS Vital Signs: Last Vital Signs Temp 97.5 F 10/29/20 09:25 Pulse 79 10/29/20 09:25 Resp 15 10/29/20 09:25 BP 116/72 10/29/20 09:25 Pulse Ox 98 10/29/20 09:25 - RESPIRATORY Respiratory Status: Respiratory Rate WNL, Airway Patent, O2 Saturation Stable - CARDIOVASCULAR CV Status: Pulse Rate WNL, Blood Pressure Stable - GASTROINTESTINAL GI Status: No Symptoms - POST OP HYDRATION Hydration Status: Adequate & Stable
--- NOTE | 2020-10-29 11:38 | OR ---
SURGEON: Nelson Lennon MD DATE OF PROCEDURE: 10/29/2020 PREOPERATIVE DIAGNOSIS: Abdominal pain. POSTOPERATIVE DIAGNOSIS: Abdominal pain. PROCEDURE PERFORMED: 1. EGD with biopsy. 2. Colonoscopy with biopsy. DESCRIPTION OF PROCEDURE: EGD: The patient was taken to the endoscopy room, and with the [employer] [facility], Diprivan was administered. A well-lubricated EGD scope was gently inserted through the oropharynx, down the esophagus, passing through the gastroesophageal junction, into the stomach. The mucosa was examined upon the passage. Any etiology will be noted. Once in the stomach, we continued to advance to the distal antrum, passed through the pylorus into the second portion of the duodenum. Again, the mucosa was examined for any abnormality and etiology. The scope was then retrieved back to the stomach and then retroflexed to look at the fundus of the stomach. If a biopsy was indicated, we will biopsy the antrum, body, and gastroesophageal junction. The air will be sucked out while the scope is retrieved to reduce the patient's discomfort. The patient tolerated the procedure well. There were no intraoperative complications. Dr. Lennon was present through the whole procedure. Prior to surgery, a time-out had been called, the patient identified, procedure identified and antibiotic administered. Colonoscopy: The patient was taken to the endoscopy room. A time out was called, patient identified, and procedure identified. Diprivan was then administrated. Patient went from awake to sleep, hearing doctor talking or door closing is normal. Perineum inspection and digital examination were then performed. A well-lubricated colonoscope was gently inserted through the rectum, advanced past the rectosigmoid junction, the descending colon, splenic flexure, transverse colon, hepatic flexure, ascending colon, arrived to the cecum. Cecum was identified as dictated in the finding. Then the scope was carefully withdrawn while attention was paid to the mucosal surface for any abnormality. Air will be sucked out during the scope withdrawal. At the rectum, retroflexed to examine any rectal diseases, fistula or hemorrhoids. During mucosal examination, abnormality or polyp was noted; picture taken and biopsy performed. Patient tolerated procedure well. There were no intraoperative complications, and Dr. Lennon was present throughout the whole procedure. EGD FINDINGS: 1. Patient is sedated with [employer] [facility] and Diprivan, patient is soundly snoring. 2. Oropharynx and proximal esophagus down to the GE junction free of disease, stricture, inflammation, varicosity, none of those, and GE junction at 40 shows flame-like erosive esophagitis. Silverio ulcer is not observed but is pretty pronounced. Stomach rugae is normal in appearance and there is bile, and her antrum looks fine. Duodenum looks grossly normal. Retroflexed look at the fundus of the stomach, there is no hiatal hernia. Biopsy done at antrum, body, GE junction at 40, and sucked out the gas while scope pulling out. During the whole study, there was no food particle, blood, or silverio ulcer observed, and there is bile in the stomach. COLONOSCOPY FINDINGS: 1. Patient is sedated with [employer] [facility] and Diprivan, patient is soundly snoring. 2. Bowel prep is average with some liquid stool, no semi-formed stool, no stool ball. 3. Colon is rather straightforward. Cecum indicated by ileocecal fold, one-to- one indentation, and scope guide is pointing south, and appendiceal orifice and is only about 1 m of the cecum. Random biopsy done for abdominal pain, and mucosa examined upon scope pulling out. The patient does not have diverticulosis, polyp mass, growth, inflammation, stricture, ulceration, AV malformation, none of those. Stool is yellow in color, and the patient does not have external hemorrhoids, mild internal hemorrhoids, very mild. The patient would benefit from repeat colonoscopy on as-needed basis as she is 24-year-old. LAMONTE / MC /[id number]
== END 2020-10-29 09:42 | disposition home or self-care (01) ==
LOC: MW.SDS 07:03
PROVIDERS: ATTEND Surgery
DX: R10.9 Unspecified abdominal pain (principal); E66.9 Obesity, unspecified; K21.9 Gastro-esophageal reflux disease without esophagitis; F32.9 Major depressive disorder, single episode, unspecified; G47.33 Obstructive sleep apnea (adult) (pediatric); K29.50 Unspecified chronic gastritis without bleeding; K31.89 Other diseases of stomach and duodenum; Z79.899 Other long term (current) drug therapy; Z98.890 Other specified postprocedural states
CPT/HCPCS: 43239; 45380; 81025; J2250; J2704; J7120; 00813

== ENCOUNTER 2021-07-08 12:44 | Emergency (ER) | payer SELFPAY ==
[2021-07-08] MEDS ORDERED: Sodium Chloride 0.9% 1,000 ML IV ONE (13:17)
[2021-07-08] MEDS ORDERED: Acetaminophen 500 MG Tab PO ONE (13:17)
[2021-07-08] MEDS ORDERED: Ondansetron 4 MG/2 ML SDV IVPUSH ONE (13:17)
[2021-07-08] MEDS ORDERED: Acetaminophen 500 MG Tab ONE (13:40)
[2021-07-08 14:01] LABS: BLOOD UREA NITROGEN,BUN 11 mg/dL (7.0-18.0); CARBON DIOXIDE,CO2 26.4 mmol/L (21.0-32.0); CHLORIDE,CL 102 mmol/L (98-107); GLUCOSE RANDOM 101 mg/dL (74-106); POTASSIUM,K 4.1 mmol/L (3.5-5.1); SODIUM,NA 139 mmol/L (136-145)
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
--- NOTE | 2021-07-08 14:36 | CR ---
INDICATION: Cough. COMPARISON: Portable AP chest August 06, 2011. TECHNIQUE: Portable AP chest. FINDINGS: Normal size cardiac silhouette. Clear lung singh without evidence of acute pneumonic infiltrates or CHF. No pneumothorax or pleural effusion. IMPRESSION: Negative chest. Dictated by Tucker Nunez MD @ 07/08/2021 2:35:16 PM (Electronically Signed)
[2021-07-08 14:49] VITALS: BP 121/78; PULSE 93
== END 2021-07-08 14:48 | disposition home or self-care (01) ==
LOC: MW.ED 12:44
DX: U07.1 COVID-19 (principal); R74.01 Elevation of levels of liver transaminase levels; E66.9 Obesity, unspecified; Z68.41 Body mass index [BMI] 40.0-44.9, adult
CPT/HCPCS: 36415; 71045; 80053; 81001; 81025; 85025; 87635; 96374; 99284; A9270; J2405; J7030; U0002

== ENCOUNTER 2022-07-20 03:13 | Emergency (ER) | payer OTHER ==
[2022-07-20] MEDS ORDERED: Acetaminophen 500 MG Tab PO ONE (03:32)
[2022-07-20 04:01] LABS: POTASSIUM,K 3.6 mmol/L (3.5-5.1)
[2022-07-20 04:57] VITALS: BP 106/67; PULSE 73
== END 2022-07-20 04:55 | disposition home or self-care (01) ==
LOC: MW.ED 03:13
DX: O20.0 Threatened abortion (principal); Z20.822 Contact with and (suspected) exposure to COVID-19
CPT/HCPCS: 36415; 80053; 81003; 81025; 84702; 85025; 86850; 86900; 86901; 87635; 99284; A9270; 99283; U0002

== ENCOUNTER 2023-01-07 22:55 | Emergency (ER) | payer SELFPAY ==
[2023-01-07 23:12] VITALS: BP 127/80; PULSE 92
== END 2023-01-07 23:15 | disposition other institution (70) ==
LOC: MW.ED 22:55
DX: O41.03X0 Oligohydramnios, third trimester, not applicable or unspecified (principal); Z3A.35 35 weeks gestation of pregnancy
CPT/HCPCS: 99282

== ENCOUNTER 2023-01-08 01:16 | Emergency (ER) | payer SELFPAY ==
[2023-01-08 01:47] VITALS: BP 112/73; PULSE 90
== END 2023-01-08 01:54 ==
LOC: MW.ED 01:16
DX: Z32.01 Encounter for pregnancy test, result positive (principal); Z79.82 Long term (current) use of aspirin; Z3A.35 35 weeks gestation of pregnancy
CPT/HCPCS: 99284

== ENCOUNTER 2023-02-24 15:37 | Emergency (ER) | payer MEDICAID ==
[2023-02-24] MEDS ORDERED: Promethazine 25 MG/ML SDV IM STA (16:00)
[2023-02-24] MEDS ORDERED: Sodium Chloride 0.9% 10 ML Syringe FLUSH PRN (16:00)
[2023-02-24] MEDS ORDERED: Sodium Chloride 0.9% 1,000 ML IV STA ×2 (16:00→16:46)
[2023-02-24] MEDS ORDERED: Sodium Chloride 0.9% 2.5 ML Syringe FLUSH PRN (16:00)
[2023-02-24 16:16] LABS: APPEARANCE,URINE CLOUDY; BILIRUBIN,URINE NEGATIVE (NEGATIVE); COLOR,URINE YELLOW; GLUCOSE,URINE NEGATIVE (NEGATIVE); KETONES,URINE NEGATIVE (NEGATIVE); LEUKOCYTE ESTERASE,URINE TRACE (NEGATIVE); NITRITE,URINE NEGATIVE (NEGATIVE); OCCULT BLOOD,URINE NEGATIVE (NEGATIVE); PH,URINE 7.5 (5.0-8.0); PROTEIN,URINE 30 mg/dL (NEGATIVE); UROBILINOGEN,URINE 0.2 EU/dL (<2.0)
[2023-02-24 16:20] LABS: BACTERIA,URINE FEW (NEGATIVE); EPITHELIAL CELLS,URINE MODERATE (NONE-FEW); RBC,URINE NONE SEEN (0-2/HPF); SQUAMOUS EPITHELIAL CELLS,UR MODERATE; WBC,URINE 0-5 (0-5/HPF)
[2023-02-24] MEDS ORDERED: Morphine 4 MG/ML Syringe IVPUSH ONE (16:20)
[2023-02-24 16:21] LABS: MUCUS,URINE MODERATE (NONE-MOD)
[2023-02-24] MEDS ORDERED: Ondansetron 4 MG/2 ML SDV IVPUSH ONE (16:21)
[2023-02-24 16:25] LABS: BASOPHILS PERCENT AUTO 0.5 % (0.0-1.5); EOSINOPHILS ABSOLUTE AUTO 0.3 K/uL (0.0-0.7); EOSINOPHILS PERCENT AUTO 3.2 % (0.0-7.0); HEMATOCRIT 38.6 % (36.0-46.0); HEMOGLOBIN 12.2 g/dL (12.0-16.0); LYMPHOCYTES ABSOLUTE AUTO 2.9 K/uL (0.6-2.4); LYMPHOCYTES PERCENT AUTO 35.7 % (16.0-40.0); MEAN CORPUSCULAR HEMOGLOBIN 27.3 pg (27.0-32.0); MEAN CORPUSCULAR HGB CONC 31.6 g/dL (31.0-37.0); MEAN CORPUSCULAR VOLUME 86.4 fL (80.0-98.0); MONOCYTES ABSOLUTE AUTO 0.5 K/uL (0.0-0.8); MONOCYTES PERCENT AUTO 6.3 % (0.0-15.0); NEUTROPHILS ABSOLUTE AUTO 4.4 K/uL (1.4-5.7); NEUTROPHILS PERCENT AUTO 54.3 % (48.0-80.0); NRBC ABSOLUTE 0 K/uL; PLATELET COUNT,PLT 333 K/uL (150-400); RED BLOOD CELL COUNT 4.47 M/uL (4.30-5.90); WHITE BLOOD CELL COUNT,WBC 8.05 K/uL (4.0-11.0)
[2023-02-24 16:47] LABS: A/G RATIO 0.9 (0.9-1.6); ALBUMIN 3.5 g/dL (3.4-5.0); BILIRUBIN TOTAL 0.5 mg/dL (0.2-1.0); CALCIUM 8.8 mg/dL (8.5-10.1); CARBON DIOXIDE,CO2 26.9 mmol/L (21.0-32.0); CREATININE 0.7 mg/dL (0.6-1.0); EST CRCL DRUG DOSING (CG) 113.01 mL/min; MAGNESIUM 1.9 mg/dL (1.8-2.4); POTASSIUM,K 3.9 mmol/L (3.5-5.1); PROTEIN TOTAL,TP 7.5 g/dL (6.4-8.2)
[2023-02-24] MEDS ORDERED: HYDROmorphone 1 MG/ML Syringe IVPUSH STA ×2 (16:54→17:48)
[2023-02-24] MEDS ORDERED: droPERidol 5 MG/2 ML SDV IVPUSH STA (18:57)
[2023-02-24] MEDS ORDERED: HYDROmorphone 2 MG Tab PO STA (19:00)
[2023-02-24 19:36] VITALS: BP 151/94; PULSE 69
== END 2023-02-24 19:51 | disposition home or self-care (01) ==
LOC: MW.ED 15:37
DX: N20.0 Calculus of kidney (principal); E66.9 Obesity, unspecified; Z68.41 Body mass index [BMI] 40.0-44.9, adult
CPT/HCPCS: 36415; 80053; 81001; 81025; 83735; 85025; 87086; 96361; 96372; 96374; 96375; 96376; 99284; A9270; J1170; J1790; J2270; J2405; J2550; J3490; J7030; 99283

== ENCOUNTER 2023-12-01 20:34 | Emergency (ER) | payer MEDICAID ==
[2023-12-02 00:24] VITALS: BP 126/70; PULSE 71
== END 2023-12-02 00:24 | disposition home or self-care (01) ==
LOC: MW.ED 20:34
DX: H92.03 Otalgia, bilateral (principal); E66.9 Obesity, unspecified; Z68.42 Body mass index [BMI] 45.0-49.9, adult
CPT/HCPCS: 99282; 99283

== ENCOUNTER 2024-04-16 02:29 | Emergency (ER) | payer MEDICAID, OTHER ==
[2024-04-16] MEDS: Ketorolac 30 MG/ML SDV IM ONE (02:51)
[2024-04-16 02:59] LABS: BASOPHILS ABSOLUTE AUTO 0.06 K/uL (0.00-0.20); BASOPHILS PERCENT AUTO 0.6 % (0.0-1.0); EOSINOPHILS ABSOLUTE AUTO 0.18 K/uL (0.00-0.45); EOSINOPHILS PERCENT AUTO 1.9 % (0.0-6.0); HEMATOCRIT 36.8 % (37.0-47.0); HEMOGLOBIN 12.2 g/dL (12.0-16.0); IMMATURE GRAN ABSOLUTE AUTO 0.03 K/uL (0.00-0.05); IMMATURE GRAN PERCENT AUTO 0.3 % (0.0-0.4); LYMPHOCYTES ABSOLUTE AUTO 2.98 K/uL (1.00-4.80); LYMPHOCYTES PERCENT AUTO 31.2 % (24.0-44.0); MEAN CORPUSCULAR HEMOGLOBIN 29.3 pg (28.0-32.0); MEAN CORPUSCULAR HGB CONC 33.2 g/dL (32.0-36.0); MEAN CORPUSCULAR VOLUME 88.2 fL (83.0-99.0); MEAN PLATELET VOLUME 9.8 fL (9.4-12.3); MONOCYTES ABSOLUTE AUTO 0.55 K/uL (0.00-0.80); MONOCYTES PERCENT AUTO 5.8 % (0.0-8.0); NEUTROPHILS ABSOLUTE AUTO 5.74 K/uL (1.80-7.70); NEUTROPHILS PERCENT AUTO 60.2 % (41.0-71.0); PLATELET COUNT,PLT 275 K/uL (150-400); RED BLOOD CELL COUNT 4.17 M/uL (4.10-5.30); WHITE BLOOD CELL COUNT,WBC 9.54 K/uL (3.9-11.3)
[2024-04-16 03:35] LABS: ALBUMIN 3.4 g/dL (3.4-5.0); BILIRUBIN TOTAL 0.4 mg/dL (0.2-1.0); CALCIUM 8.4 mg/dL (8.5-10.1); CARBON DIOXIDE,CO2 27.5 mmol/L (21.0-32.0); EST CRCL DRUG DOSING (CG) 78.41 mL/min; POTASSIUM,K 3.5 mmol/L (3.5-5.1); PROTEIN TOTAL,TP 6.9 g/dL (6.4-8.2)
[2024-04-16 03:51] VITALS: BP 118/69; PULSE 92
== END 2024-04-16 03:51 | disposition home or self-care (01) ==
LOC: MW.ED 02:29
DX: S80.862A Insect bite (nonvenomous), left lower leg, initial encounter (principal); E66.9 Obesity, unspecified; Z68.41 Body mass index [BMI] 40.0-44.9, adult; W57.XXXA Bitten or stung by nonvenomous insect and other nonvenomous arthropods, initial encounter
CPT/HCPCS: 36415; 80053; 82550; 85025; 96372; 99283; J1885

== ENCOUNTER 2024-06-06 18:33 | Emergency (ER) | payer MEDICAID, OTHER ==
[2024-06-06 18:51] LABS: APPEARANCE,URINE SLT CLOUDY; BILIRUBIN,URINE NEGATIVE (NEGATIVE); COLOR,URINE YELLOW; GLUCOSE,URINE NEGATIVE (NEGATIVE); KETONES,URINE NEGATIVE (NEGATIVE); LEUKOCYTE ESTERASE,URINE NEGATIVE (NEGATIVE); NITRITE,URINE NEGATIVE (NEGATIVE); OCCULT BLOOD,URINE NEGATIVE (NEGATIVE); PH,URINE 6.5 (5.0-8.0); PROTEIN,URINE NEGATIVE (NEGATIVE); UROBILINOGEN,URINE 0.2 EU/dL (<2.0)
[2024-06-06] MEDS: Ondansetron 4 MG/2 ML SDV IVPUSH STA (19:17)
[2024-06-06] MEDS: Sodium Chloride 0.9% 10 ML Syringe FLUSH PRN (19:17)
[2024-06-06] MEDS: Sodium Chloride 0.9% 1,000 ML IV STA (19:17)
[2024-06-06] MEDS: Sodium Chloride 0.9% 2.5 ML Syringe FLUSH PRN (19:18)
[2024-06-06] MEDS: Morphine 4 MG/ML Syringe IVPUSH STA ×2 (19:18→21:29)
[2024-06-06 19:21] LABS: BASOPHILS ABSOLUTE AUTO 0.08 K/uL (0.00-0.20); BASOPHILS PERCENT AUTO 0.8 % (0.0-1.0); EOSINOPHILS ABSOLUTE AUTO 0.22 K/uL (0.00-0.45); EOSINOPHILS PERCENT AUTO 2.3 % (0.0-6.0); HEMATOCRIT 40.9 % (37.0-47.0); HEMOGLOBIN 13.2 g/dL (12.0-16.0); IMMATURE GRAN ABSOLUTE AUTO 0.02 K/uL (0.00-0.05); IMMATURE GRAN PERCENT AUTO 0.2 % (0.0-0.4); LYMPHOCYTES ABSOLUTE AUTO 2.33 K/uL (1.00-4.80); LYMPHOCYTES PERCENT AUTO 24.4 % (24.0-44.0); MEAN CORPUSCULAR HEMOGLOBIN 29.1 pg (28.0-32.0); MEAN CORPUSCULAR HGB CONC 32.3 g/dL (32.0-36.0); MEAN CORPUSCULAR VOLUME 90.1 fL (83.0-99.0); MEAN PLATELET VOLUME 9.7 fL (9.4-12.3); MONOCYTES ABSOLUTE AUTO 0.54 K/uL (0.00-0.80); MONOCYTES PERCENT AUTO 5.7 % (0.0-8.0); NEUTROPHILS ABSOLUTE AUTO 6.36 K/uL (1.80-7.70); NEUTROPHILS PERCENT AUTO 66.6 % (41.0-71.0); PLATELET COUNT,PLT 335 K/uL (150-400); RED BLOOD CELL COUNT 4.54 M/uL (4.10-5.30); WHITE BLOOD CELL COUNT,WBC 9.55 K/uL (3.9-11.3)
[2024-06-06 19:43] LABS: A/G RATIO 1.1 (0.9-1.6); ALBUMIN 4.1 g/dL (3.4-5.0); BILIRUBIN TOTAL 0.4 mg/dL (0.2-1.0); CALCIUM 9.1 mg/dL (8.5-10.1); CARBON DIOXIDE,CO2 27.1 mmol/L (21.0-32.0); CREATININE 0.8 mg/dL (0.6-1.0); EST CRCL DRUG DOSING (CG) 98.01 mL/min; POTASSIUM,K 4.2 mmol/L (3.5-5.1); PROTEIN TOTAL,TP 7.9 g/dL (6.4-8.2)
[2024-06-06] MEDS: Iopamidol 755 MG/ML 500 ML Multipack Bottle IVPUSH ONE (20:05)
[2024-06-06] MEDS: droPERidol 5 MG/2 ML SDV IVPUSH STA (21:29)
[2024-06-06 22:37] VITALS: BP 120/90; PULSE 76
== END 2024-06-06 22:01 | disposition home or self-care (01) ==
LOC: MW.ED 18:33
DX: N20.0 Calculus of kidney (principal); K21.9 Gastro-esophageal reflux disease without esophagitis; E66.9 Obesity, unspecified; Z79.899 Other long term (current) drug therapy; Z75.8 Other problems related to medical facilities and other health care; Z68.41 Body mass index [BMI] 40.0-44.9, adult
CPT/HCPCS: 36415; 74177; 80053; 81003; 81025; 83690; 85025; 96361; 96374; 96375; 96376; 99284; J1790; J2270; J2405; J3490; J7030; Q9967

== ENCOUNTER 2024-12-07 19:54 | Emergency (ER) | payer SELFPAY ==
[2024-12-07 21:10] VITALS: BP 129/86; PULSE 99
[2024-12-07] MEDS: Acetaminophen 500 MG Tab PO ONE (22:42)
== END 2024-12-07 23:44 | disposition home or self-care (01) ==
LOC: MW.ED 19:54
DX: J10.1 Influenza due to other identified influenza virus with other respiratory manifestations (principal); E66.9 Obesity, unspecified; Z75.8 Other problems related to medical facilities and other health care; Z68.41 Body mass index [BMI] 40.0-44.9, adult
CPT/HCPCS: 87428; 99283; A9270

== ENCOUNTER 2025-06-17 22:37 | Emergency (ER) | payer SELFPAY ==
[2025-06-18 00:07] VITALS: BP 125/83; PULSE 68
== END 2025-06-18 00:07 | disposition home or self-care (01) ==
LOC: MW.ED 22:37
DX: T63.441A Toxic effect of venom of bees, accidental (unintentional), initial encounter (principal); E66.9 Obesity, unspecified; Z79.899 Other long term (current) drug therapy
CPT/HCPCS: 99282; 99283

== ENCOUNTER 2025-08-26 03:02 | Emergency (ER) | payer SELFPAY ==
[2025-08-26] MEDS: droPERidol 2.5 MG/ML SDV IVPUSH ONE (03:32)
[2025-08-26 03:59] LABS: BASOPHILS ABSOLUTE AUTO 0.05 K/uL (0.00-0.20); BASOPHILS PERCENT AUTO 0.7 % (0.0-1.0); EOSINOPHILS ABSOLUTE AUTO 0.20 K/uL (0.00-0.45); EOSINOPHILS PERCENT AUTO 2.8 % (0.0-6.0); IMMATURE GRAN ABSOLUTE AUTO 0.02 K/uL (0.00-0.05); IMMATURE GRAN PERCENT AUTO 0.3 % (0.0-0.4); LYMPHOCYTES ABSOLUTE AUTO 2.05 K/uL (1.00-4.80); LYMPHOCYTES PERCENT AUTO 28.9 % (24.0-44.0); MEAN PLATELET VOLUME 10.1 fL (9.4-12.3); MONOCYTES ABSOLUTE AUTO 0.43 K/uL (0.00-0.80); MONOCYTES PERCENT AUTO 6.1 % (0.0-8.0); NEUTROPHILS ABSOLUTE AUTO 4.35 K/uL (1.80-7.70); NEUTROPHILS PERCENT AUTO 61.2 % (41.0-71.0); NRBC ABSOLUTE 0.00 K/uL (0.00-0.02); NRBC PERCENT 0.0 /100WBC (0.0-0.2); PLATELET COUNT,PLT 329 K/uL (150-400); RED BLOOD CELL COUNT 4.43 M/uL (4.10-5.30); WHITE BLOOD CELL COUNT,WBC 7.10 K/uL (3.9-11.3)
[2025-08-26 04:01] LABS: GLUCOSE,URINE NEGATIVE (NEGATIVE); OCCULT BLOOD,URINE LARGE (NEGATIVE)
[2025-08-26 04:02] LABS: APPEARANCE,URINE SLT CLOUDY
[2025-08-26 04:07] LABS: EPITHELIAL CELLS,URINE OCCASIONAL (NONE-FEW)
[2025-08-26 04:21] LABS: A/G RATIO 1.0 (0.9-1.6); ALANINE AMINOTRANSFERASE,ALT 27.0 IU/L (14-63); ASPARTATE AMNIOTRANSFERASE,AST 16.0 IU/L (15-37); BILIRUBIN TOTAL 0.5 mg/dL (0.2-1.0); BLOOD UREA NITROGEN,BUN 15.0 mg/dL (7.0-18.0); CARBON DIOXIDE,CO2 28.5 mmol/L (21.0-32.0); CHLORIDE,CL 105.0 mmol/L (98-107); CREATININE 0.7 mg/dL (0.6-1.0); EST CRCL DRUG DOSING (CG) 106.7 mL/min; GLUCOSE RANDOM 103.0 mg/dL (74-106); POTASSIUM,K 3.5 mmol/L (3.5-5.1); PROTEIN TOTAL,TP 7.5 g/dL (6.4-8.2); SODIUM,NA 143.0 mmol/L (136-145)
[2025-08-26 04:27] LABS: ESTIMATED GFR 120.0 mL/min (>60)
[2025-08-26] MEDS: Ketorolac 30 MG/ML SDV IVPUSH ONE (05:14)
[2025-08-26 05:17] VITALS: BP 134/67; PULSE 80
== END 2025-08-26 05:26 | disposition home or self-care (01) ==
LOC: MW.ED 03:02
DX: R10.A1 Flank pain, right side (principal); K21.9 Gastro-esophageal reflux disease without esophagitis; Z75.3 Unavailability and inaccessibility of health-care facilities; Z79.899 Other long term (current) drug therapy
CPT/HCPCS: 36415; 74176; 80053; 81001; 83690; 84702; 85025; 96361; 96374; 96375; 99284; J1790; J1885; J7030; J1171